=== PATIENT | female | born 1935 | race Caucasian/White ===

== ENCOUNTER 2022-05-04 14:11 | Outpatient (CLI) | payer MEDICARE, SELFPAY | END 2022-05-04 14:12 | disposition home or self-care (01) | LOC: FRMREF 14:12 | PROVIDERS: PCP Physician Assistant Medical; Visit Provider Physician Assistant Medical | DX: N39.0 Urinary tract infection, site not specified (principal); R10.9 Unspecified abdominal pain | CPT/HCPCS: 87086 ==

== ENCOUNTER 2022-06-04 19:51 | Emergency (ER) | payer MEDICARE, SELFPAY ==
[2022-06-04 20:08] LABS: Appearance Urine Clear (Clear); Bilirubin Urine 1+ (Negative); Blood Urine 2+ (Negative); Color Urine Yellow (Yellow); Glucose Urine Negative (Negative); Ketones Urine 2+ (Negative); Leukocyte Esterase Urine Negative (Negative); Nitrite Urine Negative (Negative); Protein Urine Negative (Negative)
[2022-06-04 20:14] VITALS: BP 124/58; PULSE 76; RESP 14; TEMP 36.2; O2SAT 95; BMI 21.9
[2022-06-04 20:17] LABS: WBC Urine 0-2 (0-5)
[2022-06-04 20:18] LABS: Squamous Epithelial Cell Urine Many (None-Few)
[2022-06-04 20:19] LABS: Coarse Granular Casts Urine Few
--- NOTE | 2022-06-04 20:51 | CRLHL7_ITS ---
For Patients: As a result of the Century Cures Act, medical imaging exams and procedure reports are released immediately into your electronic medical record. You may view this report before your referring provider. If you have questions, please contact your health care provider. HISTORY: Left and anterior chest pain. Right upper quadrant pain. Weight loss. TECHNIQUE: Intravenous contrast enhanced CT of the chest, abdomen and pelvis. 75 mL Isovue-370 intravenous contrast administered. COMPARISON: 02/09/2022 and 12/15/2021. FINDINGS: Chest: There is no acute pulmonary embolism. No thoracic aortic aneurysm or dissection. Coronary artery disease. No pericardial effusion. There are calcified right hilar lymph nodes related prior granulomatous infection. There is mildly prominent subcarinal nilson tissue which could be reactive. Prominent right upper paratracheal lymph node on image #19 of series 5 measures approximately 1.1 cm short axis compared to approximately 0.8 cm short axis previously. There is an area of consolidation within the right lower lobe likely reflecting pneumonia. Follow-up to confirm appropriate resolution is recommended. Some additional areas of patchy infiltrate are present within the right lower lobe more inferiorly, worsened from the prior CT. Patchy infiltrates within the right middle lobe and left lower lobe are similar to the prior CT. Probable postinflammatory changes at the lung apices. No pneumothorax or pleural effusion. No acute fractures. -------- Abdomen and pelvis: There are hepatic and splenic calcified granulomata. No biliary ductal dilatation. Tiny gallstones. Gallbladder borderline mildly distended measuring 3.9 cm. Adrenal glands normal. No focal pancreatic abnormality. Symmetric nephrograms. No renal mass or hydronephrosis. No obstructive urinary calculus. Urinary bladder nondistended. Changes of prior hysterectomy. - No change in small hiatal hernia. No small bowel obstruction. There is colonic diverticulosis without acute diverticulitis. No fluid collection or free air. - No abdominal aortic aneurysm. - Degenerative changes of the spine. No acute fractures. IMPRESSION: 1. No acute pulmonary embolism. 2. Worsened infiltrates within the right lower lobe with an area of consolidation likely related to pneumonia. Followup to confirm resolution is recommended. Areas of patchy infiltrate within the right middle lobe and left lower lobe are similar to the prior CT. 3. Findings of prior granulomatous disease. 4. Gallstones within a borderline mildly distended gallbladder. Dictated by Raphael Rojas MD @ 06/04/2022 10:10:57 PM Please note that all CT scans at this facility use dose modulation, iterative reconstruction, and/or weight-based dosing when appropriate to reduce radiation dose to as low as reasonably achievable. Dictated by: Raphael Rojas MD @ 06/04/2022 22:11:03 (Electronically Signed)
[2022-06-04 21:30] LABS: Basophils Percent Auto 0.8 % (0.0-3.0); Eosinophils Percent Auto 0.7 % (0.0-7.0); Hemoglobin* 11.6 gm/dL (12.0-16.0); Immature Granulocytes Abs Auto 0.02 K/uL (0.00-0.30); Lymphocytes Percent Auto 14.9 % (20-44); Mean Corpuscular HGB Conc 33 gm/dL (32-36); Mean Corpuscular Hemoglobin 29 pg (26-34); Mean Corpuscular Volume 88 fL (80-100); Monocytes Percent Auto 55.6 % (0.0-11.0); Neutrophils Percent Auto 27.8 % (42.0-72.0); Platelet Count* 119 K/uL (140-440); RDW Coefficient of Variation % 15.4 % (11.5-15.5); Red Blood Count 3.96 m/uL (4.00-5.20); White Blood Count* 11.91 K/uL (4.50-11.00)
[2022-06-04 21:43] LABS: Chloride* 100 mmol/L (96-114); Sodium* 136 mmol/L (135-149)
[2022-06-04 21:44] LABS: Potassium* 3.7 mmol/L (3.6-5.1)
[2022-06-04 21:46] LABS: Alkaline Phosphatase* 79 U/L (40-150); Aspartate Amino Transferase* 26 U/L (12-35); Bilirubin Total* 0.6 mg/dL (0.1-1.5); Carbon Dioxide* 27 mmol/L (20-32); Creatinine* 0.9 mg/dL (0.5-1.5); Est. Creatinine Clearance* 29.54; Estimated Glomerular Filt Rate 63 ml/min; Total Protein* 7.5 g/dL (6.0-8.3)
[2022-06-04 21:47] LABS: Alanine Aminotransferase* 13 U/L (4-35); Blood Urea Nitrogen* 14 mg/dL (7-30); Calcium* 8.8 mg/dL (8.4-10.6); Glucose* 121 mg/dL (60-115)
[2022-06-04 21:48] LABS: D Dimer Quantitative* 1.22 ug/ml (0.00-0.50)
[2022-06-04 21:54] LABS: Slide Review Reflex Yes
[2022-06-04 21:55] LABS: Slide Review Acceptable Review (Acceptable)
[2022-06-04 21:58] LABS: Troponin I* < 0.01 ng/mL (0.01-0.04)
[2022-06-04 22:01] LABS: C Reactive Protein* 12.6 mg/dL (0.5-1.0)
[2022-06-04] MEDS: 0.9 % SODIUM CHLORIDE 1000 ml 1,000 ML IV (22:11)
[2022-06-04] MEDS: levoFLOXacin 500 MG TABLET PO (22:51)
[2022-06-04 23:37] LABS: SARS PCR* Negative SARS-CoV-2 (Negative)
--- NOTE | 2022-06-05 17:09 | ED.ABDPAIN ---
HPI - Abdominal Pain General Chief Complaint: Abdominal Pain Stated Complaint: Chest pain Time Seen by Provider: 06/04/22 20:26 History of Present Illness HPI narrative: 87-year-old woman presenting to the emergency department with complaint of right-sided low chest pain more intense upon waking this morning. She describes is a sharp pain and seems to feel it somewhat in her back as well. She feels that this pain had been prior present on her left side chest and now has moved more to the right. Has been seen multiple times for upper abdominal pain as well upon review record. Also has had chest wall pain. These chest pains they would actually described as being present since a diagnosis of ?double pneumonia? in October of this year. Ultimately was hospitalized here. Diagnosed with pneumonia and respiratory failure and sepsis. Also developed supraventricular tachycardia requiring rate control. said diagnosis initially made in [place] and he drove her here 16 hours straight hoping to receive better cares. They describe how her heart was stopped a couple of times. Sounds like describing electrical cardioversion --however I see evidence that amiodarone was used. History of prolonged QT on review of records. She is not coughing and not particularly short of breath. Pain today is described as slightly pleuritic. She also concerned of urinating constantly today. There is a history of urinary tract infections. Does not have dysuria. Otherwise denies a history of gallbladder problems. Spicy foods bother her. She is treated for GERD. I see cholelithiasis in record. Otherwise history of fibromyalgia Takes tramadol for pain and then wondering whether or not there is another medication that might be helpful as she does not feel like this does enough. ?may be a better pain pill would help? Has been taking this for years They are concerned about weight loss. Generalized fatigue. says that he and his daughter thinks that she need a PET scan. Quite clear they are concerned about malignancy. Past History Past Medical History Medical Problems: Esophageal reflux Fibromyalgia Herpes simplex type 1 infection Aortic valve sclerosis Vitamin D deficiency Osteopenia FRAX: 23%major fracture. 6.5% hip fracture. Starting fosamax 08/30 Hyperparathyroidism Followed by Endocrin. - Dr. Iqbal. Corrected with Vit D replacement. Hemarthrosis of knee Hypothyroidism Solitary pulmonary nodule Followed by Pulminology at [facility] [phone] Dr. Diego Hyperlipidemia Pre-syncope normal carotid US and essentially normal cardiac echo. Had CARDS consult - no further work up indicated - 01/2011 Postherpetic neuralgia Right T10 dermatome. HTN (hypertension) Sciatic leg pain Past Surgical History Surgical Problems: H/O: hysterectomy with rectocele and bladder repair S/P total knee arthroplasty H/O colonoscopy no explanation for anemia. Small hiatal hernia. Sigmoid diverticulosis. Due for repeat colonoscopy 2015. colonoscopy EGD 2 2010 History of carpal tunnel release left wrist. 11/08/2020 Family History Family History Problems: Family history of arthritis Brother. Family history of coronary artery disease Brother; son- of [place] age 59 Family history of hypertension Siblings. 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 On prophylactic antibiotics- Dr. Brooks Aortic valve sclerosis Vitamin D deficiency Prolonged QT interval resolved after decreasing Nortripyline Osteopenia FRAX: 23%major fracture. 6.5% hip fracture. Starting fosamax 08/30 Hyperparathyroidism Followed by Endocrin. - Dr. Iqbal. Corrected with Vit D replacement. Hemarthrosis of knee Non-cardiac chest pain Hospitalized at [place]. Normal serial enzymes, normal echo, normal NM stress test. 07/2012 Lower gastrointestinal hemorrhage Hypothyroidism Solitary pulmonary nodule Followed by Pulminology at [facility] [phone] Dr. Diego Hyperlipidemia Pre-syncope normal carotid US and essentially normal cardiac echo. Had CARDS consult - no further work up indicated - 01/2011 Monocytosis See Hemoatology consult done with Dr. Herrera 08/22/16 at [facility] Postherpetic neuralgia Right T10 dermatome. HTN (hypertension) Sciatic leg pain Acute respiratory failure with hypoxia Atrial fibrillation with rapid ventricular response CAP (community acquired pneumonia) CAP (community acquired pneumonia) Chronic pain Chronic UTI HTN (hypertension) Hypokalemia Hyponatremia Hypothyroid Influenza-like illness Lactate blood increased Melena Pneumonia Severe sepsis Severe sepsis SVT (supraventricular tachycardia) UTI (urinary tract infection). Related Data Home Medications Medication Instructions Recorded Confirmed amlodipine 10 mg tablet 10 mg PO .Bedtime 05/04/22 05/04/22 cholecalciferol (vitamin D3) 25 25 mcg PO QDAY 05/04/22 05/04/22 mcg (1,000 unit) capsule levothyroxine 50 mcg tablet 50 mcg PO DAILY 05/04/22 05/04/22 polyethylene glycol 3350 17 17 g PO .Bedtime as needed PRN 05/04/22 05/04/22 gram/dose oral powder trazodone 50 mg tablet 50 mg PO .Bedtime 05/04/22 05/04/22 Previous Rx's Medication Instructions Recorded tramadol 50 mg tablet 50 mg PO Q6-8H PRN pain #270 tabs 05/04/22 simvastatin 10 mg tablet 10 mg PO .hs #90 tabs 05/29/22 Allergies Allergy/AdvReac Type Severity Reaction Status Date / Time codeine Allergy Severe Rash Verified 06/05/22 01:14 sulfamethoxazole Allergy Severe Rash Verified 06/05/22 01:14 trimethoprim Allergy Severe Rash Verified 06/05/22 01:14 Sulfa drugs Allergy Severe Rash Uncoded 06/05/22 01:14 DEMORAL Allergy Mild rash, Uncoded 06/05/22 01:14 itching, redness PFSH PFSH Medical History (Updated 06/05/22 @ 17:52 by Conrado Clarke MD) Hemarthrosis of knee Lower gastrointestinal hemorrhage Pneumonia Severe sepsis Solitary pulmonary nodule Supraventricular tachycardia Surgical History (Updated 05/01/22 @ 12:15 by Navarro Lozoya) History of carpal tunnel release History of colonoscopy (12/14/10) History of hysterectomy (11/03/10) Status post total knee replacement Family History (Updated 05/01/22 @ 12:16 by Navarro Lozoya) Brother Arthritis Coronary artery disease Sister Breast cancer Son Coronary artery disease Family/Other High blood pressure Social History (Updated 05/01/22 @ 12:17 by Navarro Lozoya) Narrative: does not drink alcohol does not use illicit drugs nonsmoker Smoking Status: Never smoker Exam Narrative: Exam Narrative: Pleasant. NAD. Breathing easily. Cranial nerves 2-12 intact. Speaking easily. Carefully groomed with makeup. Skin is warm and dry. Cardiovascular with regular rate and rhythm. 2/6 systolic murmur Extremities are without edema. Well perfused peripherally. Lungs appear to be clear. Equal expansion/excursion. Mildly reproducible pain to palpation on the low anterior chest wall right greater than left. No lesions are noted. Abdomen is soft. Not markedly tender. Tympanitic across the upper abdomen. Normoactive bowel sounds. Const: Vital Signs, click to edit/add: Vital Signs - 24 hr 06/04/22 20:14 Temperature 97.2 F L Pulse Rate [Pulse Oximeter] 76 Respiratory Rate 14 Blood Pressure [Le ft Upper Arm] 124/58 L Pulse Oximetry 95 Oxygen Delivery Me thod Room Air Documenting provider has reviewed patient's vital signs: yes Course Course Hospital Course: Monitored on secured entrance monitor. Given IV hydration. Did not appear to need further pain management. Vitally well and stable Vital Signs Vital signs: Initial Vital Signs Temperature 97.2 F L 06/04/22 20:14 Temperature Source Temporal Artery Scan 06/04/22 20:14 Pulse Rate 76 06/04/22 20:14 Pulse Rhythm 06/04/22 20:14 Respiratory Rate 14 06/04/22 20:14 Blood Pressure 124/58 L 06/04/22 20:14 Blood Pressure Mean 80 06/04/22 20:14 Pulse Oximetry 95 06/04/22 20:14 Oxygen Delivery Method 06/04/22 20:14 Vital Signs Temperature 97.2 F L 06/04/22 20:14 Pulse Rate 76 06/04/22 20:14 Respiratory Rate 14 06/04/22 20:14 Blood Pressure 124/58 L 06/04/22 20:14 Pulse Oximetry 95 06/04/22 20:14 Oxygen Delivery Method 06/04/22 20:14 Temperature 97.2 F L 06/04/22 20:14 Pulse Rate 76 06/04/22 20:14 Respiratory Rate 14 06/04/22 20:14 Blood Pressure 124/58 L 06/04/22 20:14 Pulse Oximetry 95 06/04/22 20:14 Oxygen Delivery Method 06/04/22 20:14 Chest abdomen pelvis with IV contrast IMPRESSION: 1. No acute pulmonary embolism. 2. Worsened infiltrates within the right lower lobe with an area of consolidation likely related to pneumonia. Followup to confirm resolution is recommended. Areas of patchy infiltrate within the right middle lobe and left lower lobe are similar to the prior CT. 3. Findings of prior granulomatous disease. 4. Gallstones within a borderline mildly distended gallbladder. Dictated by Raphael Rojas MD @ 06/04/2022 10:10:57 PM MDM - Abdominal Pain MDM Narrative Medical decision making narrative: Most remarkable finding in urine I think is ketones. White count mildly elevated. CRP rather elevated. Elevated D-dimer mildly. Likely reactive. Reviewed CT imaging. I believe them to be reassured of run away malignancy. Looks to be progressing pneumonia again. Did give 1 dose of levofloxacin however with prolonged QT would not continue that course. Changed to doxycycline. The pains that she is describing I think could be multifactorial combination fibromyalgia, GERD, pneumonia, post herpetic neuralgia, biliary colic. Probably fibromyalgia and post herpetic neuralgia most contributory now exacerbated by pneumonia Weight loss and fatigue on the heels of rather severe medical illnesses. I think slow recovery. Deconditioning. I'm am disinclined to increasing or adding medication right now with regard to pain but I think a followup visit to discuss pain management is in order. Would reassess pain needs following treatment and resolution of today's findings. Needs follow-up imaging to confirm resolution of paratracheal lymphadenopathy and pneumonia. Medical Records Attestation: I reviewed the patient's medical records. Lab Data Attestation: I reviewed the patient's lab results. Labs: Lab Results 06/04/22 06/04/22 06/04/22 Range/Units 20:00 21:22 21:22 WBC 11.91 H (4.50-11.00) K/uL RBC 3.96 L (4.00-5.20) m/uL Hgb 11.6 L (12.0-16.0) gm/dL Hct 35.0 (33.0-51.0) % MCV 88 (80-100) fL MCH 29 (26-34) pg MCHC 33 (32-36) gm/dL RDW Coeff of Colt 15.4 (11.5-15.5) % Plt Count 119 L (140-440) K/uL Neut % (Auto) 27.8 L (42.0-72.0) % Lymph % (Auto) 14.9 L (20-44) % [place] % (Auto) 55.6 H (0.0-11.0) % Eos % (Auto) 0.7 (0.0-7.0) % Baso % (Auto) 0.8 (0.0-3.0) % Neut # (Auto) 3.30 (1.7-7.0) K/uL Lymph # (Auto) 1.80 (0.90-2.90) K/uL [place] # (Auto) 6.60 H (0.00-0.90) K/UL Eos # (Auto) 0.10 (0.00-0.50) K/uL Baso # (Auto) 0.10 (0.00-0.30) K/uL Abs Immat Gran (auto) 0.02 (0.00-0.30) K/uL Diff Slide Review Acceptable Review (Acceptable) D-Dimer Quant (PE/DVT) 1.22 H (0.00-0.50) ug/ml Sodium (135-149) mmol/L Potassium (3.6-5.1) mmol/L Chloride (96-114) mmol/L Carbon Dioxide (20-32) mmol/L BUN (7-30) mg/dL Creatinine (0.5-1.5) mg/dL Estimated Creat Clear Estimated GFR ml/min Glucose (60-115) mg/dL Calcium (8.4-10.6) mg/dL Total Bilirubin (0.1-1.5) mg/dL AST (12-35) U/L ALT (4-35) U/L Alkaline Phosphatase (40-150) U/L Troponin I (0.01-0.04) ng/mL C-Reactive Protein (0.5-1.0) mg/dL Total Protein (6.0-8.3) g/dL Albumin (3.3-5.0) g/dL Urine Color Yellow (Yellow) Urine Appearance Clear (Clear) Urine pH 5.0 (5.0-8.5) Ur Specific [place] 1.020 (1.000-1.030) Urine Protein Negative (Negative) Urine Glucose (UA) Negative (Negative) Urine Ketones 2+ A (Negative) Urine Blood 2+ A (Negative) Urine Nitrite Negative (Negative) Urine Bilirubin 1+ A (Negative) Urine Urobilinogen 1.0 (0.2-1.0) Ur Leukocyte Esterase Negative (Negative) Urine RBC 2-5 A (0-2) Urine WBC 0-2 (0-5) Ur Squamous Epith Cells Many A (None-Few) Urine Bacteria None (None) Coarse Granular Casts Few A (None) SARS-CoV-2 (PCR) (Negative) 06/04/22 06/04/22 Range/Units 21:22 22:40 WBC (4.50-11.00) K/uL RBC (4.00-5.20) m/uL Hgb (12.0-16.0) gm/dL Hct (33.0-51.0) % MCV (80-100) fL MCH (26-34) pg MCHC (32-36) gm/dL RDW Coeff of Colt (11.5-15.5) % Plt Count (140-440) K/uL Neut % (Auto) (42.0-72.0) % Lymph % (Auto) (20-44) % [place] % (Auto) (0.0-11.0) % Eos % (Auto) (0.0-7.0) % Baso % (Auto) (0.0-3.0) % Neut # (Auto) (1.7-7.0) K/uL Lymph # (Auto) (0.90-2.90) K/uL [place] # (Auto) (0.00-0.90) K/UL Eos # (Auto) (0.00-0.50) K/uL Baso # (Auto) (0.00-0.30) K/uL Abs Immat Gran (auto) (0.00-0.30) K/uL Diff Slide Review (Acceptable) D-Dimer Quant (PE/DVT) (0.00-0.50) ug/ml Sodium 136 (135-149) mmol/L Potassium 3.7 (3.6-5.1) mmol/L Chloride 100 (96-114) mmol/L Carbon Dioxide 27 (20-32) mmol/L BUN 14 (7-30) mg/dL Creatinine 0.9 (0.5-1.5) mg/dL Estimated Creat Clear 29.54 Estimated GFR 63 ml/min Glucose 121 H (60-115) mg/dL Calcium 8.8 (8.4-10.6) mg/dL Total Bilirubin 0.6 (0.1-1.5) mg/dL AST 26 (12-35) U/L ALT 13 (4-35) U/L Alkaline Phosphatase 79 (40-150) U/L Troponin I < 0.01 L (0.01-0.04) ng/mL C-Reactive Protein 12.6 H (0.5-1.0) mg/dL Total Protein 7.5 (6.0-8.3) g/dL Albumin 4.0 (3.3-5.0) g/dL Urine Color (Yellow) Urine Appearance (Clear) Urine pH (5.0-8.5) Ur Specific [place] (1.000-1.030) Urine Protein (Negative) Urine Glucose (UA) (Negative) Urine Ketones (Negative) Urine Blood (Negative) Urine Nitrite (Negative) Urine Bilirubin (Negative) Urine Urobilinogen (0.2-1.0) Ur Leukocyte Esterase (Negative) Urine RBC (0-2) Urine WBC (0-5) Ur Squamous Epith Cells (None-Few) Urine Bacteria (None) Coarse Granular Casts (None) SARS-CoV-2 (PCR) Negative SARS-CoV-2 (Negative) ECG Data Attestation: I personally reviewed and interpreted this ECG as follows: (EKG with normal sinus at 82. Actually looks similar to prior. Might be evolving a bundle branch block) Discharge Plan Discharge Clinical Impression: Pneumonia, Cholelithiasis, Chest wall pain Patient Disposition: Home w/ Parent or Adult Condition: Stable Additional Instructions: Please follow-up to reimage your chest again in 2-3 weeks. Hydrate. I would also follow up with her primary care provider to discuss treatment of fibromyalgia and nerve-type pain. It is possible that some of your abdominal pains are related to these gallstones. Might be worth a conversation with General surgery. Return for marked increase in chest pain, increasing and persistent shortness of breath, associated fever. Protect yourself from the sun while you are taking doxycycline. We will call you if your COVID test is positive. Prescriptions: No Action cholecalciferol (vitamin D3) 25 mcg (1,000 unit) capsule 25 mcg PO QDAY levothyroxine 50 mcg tablet 50 mcg PO DAILY amlodipine 10 mg tablet 10 mg PO .Bedtime Rx Instructions: 1 po qhs for blood pressure trazodone 50 mg tablet 50 mg PO .Bedtime polyethylene glycol 3350 17 gram/dose powder 17 g PO .Bedtime as needed PRN tramadol 50 mg tablet 50 mg PO Q6-8H PRN (Reason: pain) Qty: 270 1RF simvastatin 10 mg tablet 10 mg PO .hs Qty: 90 1RF Follow Up/Referrals: Callahan,Mukti B, PA-C [Primary Care Provider] - Stand Alone Forms: [facility] Info Instructions
== END 2022-06-04 23:14 | disposition home or self-care (01) ==
PROVIDERS: Emergency Provider Family Medicine; PCP Physician Assistant Medical
DX: J18.9 Pneumonia, unspecified organism (principal); K80.20 Calculus of gallbladder without cholecystitis without obstruction; R07.89 Other chest pain
CPT/HCPCS: 36415; 71260; 74177; 80053; 81001; 84484; 85025; 85379; 86140; 87635; 93005; 96360; 99284; A9270; J7030; Q9967

== ENCOUNTER 2022-07-03 14:38 | Outpatient (CLI) | payer MEDICARE, SELFPAY ==
[2022-07-03 22:21] LABS: Chloride* 102 mmol/L (96-114)
[2022-07-03 22:22] LABS: Potassium* 4.5 mmol/L (3.6-5.1); Sodium* 139 mmol/L (135-149)
[2022-07-03 22:25] LABS: Blood Urea Nitrogen* 11 mg/dL (7-30); Calcium* 9.4 mg/dL (8.4-10.6); Carbon Dioxide* 28 mmol/L (20-32); Creatinine* 0.8 mg/dL (0.5-1.5); Estimated Glomerular Filt Rate 72 ml/min; Glucose* 85 mg/dL (60-115)
== END 2022-07-03 14:39 | disposition home or self-care (01) ==
PROVIDERS: PCP Physician Assistant Medical; Visit Provider Family Medicine
DX: R05.9 Cough, unspecified (principal); J06.9 Acute upper respiratory infection, unspecified
CPT/HCPCS: 80048

== ENCOUNTER 2022-09-05 10:02 | Outpatient (CLI) | payer MEDICARE, SELFPAY | END 2022-09-05 10:03 | disposition home or self-care (01) | LOC: FRMREF 09-11 14:05 | PROVIDERS: PCP Physician Assistant Medical; Visit Provider Family Medicine | DX: R30.0 Dysuria (principal); R35.0 Frequency of micturition | CPT/HCPCS: 87086 ==

== ENCOUNTER 2022-10-31 11:32 | Outpatient (CLI) | payer MEDICARE, SELFPAY | END 2022-10-31 11:33 | disposition home or self-care (01) | LOC: FRMREF 11-02 15:28 | PROVIDERS: PCP Physician Assistant Medical; Visit Provider Physician Assistant Medical | DX: R30.0 Dysuria (principal); N39.0 Urinary tract infection, site not specified | CPT/HCPCS: 87086; 87186 ==

== ENCOUNTER 2022-12-13 07:18 | Outpatient (CLI) | payer MEDICARE, SELFPAY | END 2022-12-13 07:19 | disposition home or self-care (01) | LOC: NFLDREF 12-21 11:32 | PROVIDERS: PCP Physician Assistant Medical; Referring Provider Physician Assistant Medical; Visit Provider Physician Assistant Medical | DX: R30.0 Dysuria (principal); N39.0 Urinary tract infection, site not specified | CPT/HCPCS: 87086; 87186 ==

== ENCOUNTER 2023-01-01 10:59 | Emergency (ER) | payer MEDICARE, SELFPAY ==
[2023-01-01 11:19] VITALS: BP 125/57; PULSE 72; RESP 16; TEMP 37.2; O2SAT 98; BMI 21.7
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
--- NOTE | 2023-01-01 11:40 | CRLHL7_ITS ---
For Patients: As a result of the Century Cures Act, medical imaging exams and procedure reports are released immediately into your electronic medical record. You may view this report before your referring provider. If you have questions, please contact your health care provider. Indication: Trauma. Technique: Right foot, 2 views. Comparison: None. Findings/Impression: Bones: Decreased osseous mineralization. Alignment is normal. No displaced fractures or bone lesions. No sign of acute injury. Joint spaces: Unremarkable. Soft tissues: Unremarkable. Dictated by Adonis Orantes MD @ 01/01/2023 1:27:34 PM (Electronically Signed)
--- NOTE | 2023-01-01 11:40 | CRLHL7_ITS ---
For Patients: As a result of the Cures Act, medical imaging exams and procedure reports are released immediately into your electronic medical record. You may view this report before your referring provider. If you have questions, please contact your health care provider. INDICATION: Fall. TECHNIQUE: Right femur 5 views. COMPARISON: Right knee radiographs 04/22/2014. Right hip radiographs 02/10/2014. FINDINGS: No acute fracture or dislocation. Right total knee arthroplasty with patellar surfacing. Hardware appears intact without radiographic evidence of loosening. No knee joint effusion. Soft tissues are unremarkable. IMPRESSION: 1. No acute findings. 2. Intact right TKA without evidence of hardware failure. Dictated by Mis Green MD @ 01/01/2023 1:28:56 PM (Electronically Signed)
--- NOTE | 2023-01-01 11:41 | CRLHL7_ITS ---
For Patients: As a result of the 21st Century Cures Act, medical imaging exams and procedure reports are released immediately into your electronic medical record. You may view this report before your referring provider. If you have questions, please contact your health care provider. Indication: Fall down escalated Technique: Volumetric multidetector CT images of the chest, abdomen, and pelvis were obtained after the administration of intravenous contrast. 54 cc Isovue 370 low osmolar intravenous contrast Comparison: None available. FINDINGS: CHEST The thoracic inlet is unremarkable. The thyroid gland is within normal limits. The thoracic aorta is non aneurysmal with scattered atherosclerotic calcification. There are mildly prominent mediastinal and hilar lymph nodes likely reactive in nature. There is mild central bronchial thickening. There are calcified hilar lymph nodes. There are scattered airspace opacities within the peripheral right greater than left lower lobes and middle lobe with somewhat cavitary appearing nodular opacity within the peripheral right lower lobe on series 2, image 63 measuring 1.2 centimeters in greatest dimension. The thoracic osseus structures are intact without fracture, lytic, or blastic lesion. The thoracic vertebral body heights are grossly maintained with mild straightening of the normal thoracic kyphosis. There is no significant spondylolisthesis. ABDOMEN AND PELVIS The liver is mildly prominent with calcified granulomas seen throughout. There are calcified splenic granulomas. There are dependent calculi within the gallbladder lumen. There is no intrahepatic or common ductal dilatation. There is a small hiatal hernia. Mild thickening of the gastric antrum is appreciated. The pancreas is normal in enhancement without significant atrophy. The adrenal glands are unremarkable without evidence of adenoma. The kidneys are preserved and corticomedullary differentiation. There is no hydronephrosis or radiopaque calculus. There is a moderate to severe diffuse amount of intracolonic stool. There is minimal distal colonic diverticulosis. The appendix is not well visualized. The abdominal aorta is nonaneurysmal with moderate scattered atherosclerotic calcification. There is prior hysterectomy. The remaining pelvic viscera are grossly within normal limits. There is no pathologically enlarged epigastric, mesenteric, retroperitoneal, or pelvic sidewall lymph node. The anterior abdominal wall is grossly intact without significant hernias. There is no free air or free fluid. There is moderate degenerative change of the bilateral hips and sacroiliac joints. The lumbar vertebral body heights are grossly maintained with endplate Schmorl`s defects. There is moderate facet arthrosis. Impression: 1. No definite evidence of acute traumatic changes of the chest, abdomen or pelvis. 2. Scattered nodular airspace opacities within the middle lobe and right greater than left lower lobes with demonstration of somewhat cavitary infiltrate and/or cavitary mass within the peripheral right lower lobe on series 2, image 63 for which additional follow-up with repeat CT of the chest in 1-3 months is recommended. 3. Sequela of granulomatous disease changes. Cholelithiasis without acute cholecystitis. Moderate stool. Mild chronic gastritis change. Please note that all CT scans at this facility use dose modulation, iterative reconstruction, and/or weight-based dosing when appropriate to reduce radiation dose to as low as reasonably achievable. Dictated by Barrera Castrejon MD @ 01/01/2023 2:48:01 PM (Electronically Signed)
[2023-01-01 12:18] VITALS: BP 135/63; PULSE 68; RESP 18; O2SAT 98
[2023-01-01 12:19] LABS: Basophils Absolute Auto 0.07 K/uL (0.00-0.30); Basophils Percent Auto 1.5 % (0.0-3.0); Eosinophils Absolute Auto 0.09 K/uL (0.00-0.50); Eosinophils Percent Auto 1.9 % (0.0-7.0); Hematocrit 39.9 % (33.0-51.0); Hemoglobin* 12.9 gm/dL (12.0-16.0); Immature Granulocytes Abs Auto 0.02 K/uL (0.00-0.30); Immature Granulocytes Pct Auto 0.4 %; Lymphocytes Absolute Auto 1.76 K/uL (0.90-2.90); Lymphocytes Percent Auto 37.1 % (20-44); Mean Corpuscular HGB Conc 32 gm/dL (32-36); Mean Corpuscular Hemoglobin 28 pg (26-34); Mean Corpuscular Volume 87 fL (80-100); Monocytes Percent Auto 36.5 % (0.0-11.0); Neutrophils Percent Auto 22.6 % (42.0-72.0); Platelet Count* 135 K/uL (140-440); RDW Coefficient of Variation % 16.4 % (11.5-15.5); Red Blood Count 4.61 m/uL (4.00-5.20); White Blood Count* 4.74 K/uL (4.50-11.00)
[2023-01-01 12:30] LABS: Slide Review Reflex No
[2023-01-01 13:01] VITALS: BP 131/67; PULSE 79; RESP 16; O2SAT 100
[2023-01-01 13:01] LABS: Creatinine, Point-of-Care* 0.8 mg/dl (0.6-1.3)
[2023-01-01 13:22] LABS: Appearance Urine Clear (Clear); Bilirubin Urine Negative (Negative); Blood Urine Trace-intact (Negative); Color Urine Yellow (Yellow); Glucose Urine Negative (Negative); Ketones Urine Negative (Negative); Leukocyte Esterase Urine Negative (Negative); Nitrite Urine Negative (Negative); Protein Urine Negative (Negative); Specific Gravity Urine 1.015 (1.000-1.030); Urobilinogen Urine 0.2 (0.2-1.0)
[2023-01-01 14:02] LABS: Chloride* 105 mmol/L (96-114); Sodium* 140 mmol/L (135-149)
[2023-01-01 14:04] LABS: Creatinine* 0.8 mg/dL (0.5-1.5); Est. Creatinine Clearance* 29.54; Estimated Glomerular Filt Rate 72 ml/min
[2023-01-01 14:05] LABS: Blood Urea Nitrogen* 9 mg/dL (7-30); Calcium* 9.6 mg/dL (8.4-10.6); Carbon Dioxide* 28 mmol/L (20-32); Glucose* 110 mg/dL (60-115)
[2023-01-01 14:18] LABS: RBC Urine 0-2 (0-2); Squamous Epithelial Cell Urine Few (None-Few); WBC Urine 0-2 (0-5)
== END 2023-01-01 15:25 | disposition home or self-care (01) ==
PROVIDERS: Emergency Provider Family Medicine; PCP Physician Assistant Medical
DX: S97.81XA Crushing injury of right foot, initial encounter (principal); R07.81 Pleurodynia; M25.551 Pain in right hip; V03.10XA Pedestrian on foot injured in collision with car, pick-up truck or van in traffic accident, initial encounter
CPT/HCPCS: 36415; 71260; 73552; 73620; 74177; 80048; 81003; 81015; 82565; 85025; 99284; Q9967

== ENCOUNTER 2023-01-10 08:57 | Outpatient (CLI) | payer MEDICARE, SELFPAY ==
[2023-01-10 12:04] LABS: Albumin* 4.1 g/dL (3.3-5.0); Chloride* 107 mmol/L (96-114)
[2023-01-10 12:05] LABS: Potassium* 4.8 mmol/L (3.6-5.1); Sodium* 142 mmol/L (135-149)
[2023-01-10 12:07] LABS: Alkaline Phosphatase* 72 U/L (40-150); Aspartate Amino Transferase* 19 U/L (12-35); Bilirubin Total* 0.4 mg/dL (0.1-1.5); Blood Urea Nitrogen* 10 mg/dL (7-30); Carbon Dioxide* 29 mmol/L (20-32); Cholesterol* 142 mg/dL (90-199); Creatinine* 0.8 mg/dL (0.5-1.5); Estimated Glomerular Filt Rate 72 ml/min; Total Protein* 7.3 g/dL (6.0-8.3)
[2023-01-10 12:08] LABS: Alanine Aminotransferase* 10 U/L (4-35); Calcium* 9.2 mg/dL (8.4-10.6); Glucose* 103 mg/dL (60-115); HDL Cholesterol* 52 mg/dL (>=50); LDL Cholesterol Calculated 72 mg/dL (<100); Triglycerides* 90 mg/dL (40-149)
== END 2023-01-10 08:58 | disposition home or self-care (01) ==
PROVIDERS: PCP Physician Assistant Medical; Visit Provider Physician Assistant Medical
DX: E78.5 Hyperlipidemia, unspecified (principal); I10 Essential (primary) hypertension; R30.0 Dysuria; R91.1 Solitary pulmonary nodule; R07.81 Pleurodynia
CPT/HCPCS: 80053; 80061; 84443; 87086

== ENCOUNTER 2023-01-15 20:33 | Outpatient (CLI) | payer MEDICARE, SELFPAY | END 2023-01-15 20:34 | disposition home or self-care (01) | LOC: AMB 01-21 03:47 | PROVIDERS: PCP Physician Assistant Medical; Visit Provider Emergency Medicine | DX: R07.89 Other chest pain (principal) | CPT/HCPCS: A0425; A0433 ==

== ENCOUNTER 2023-02-02 12:18 | Outpatient (CLI) | payer MEDICARE, SELFPAY | END 2023-02-02 12:19 | disposition home or self-care (01) | LOC: NFLDREF 02-04 10:18 | PROVIDERS: PCP Physician Assistant Medical; Referring Provider Physician Assistant Medical; Visit Provider Physician Assistant Medical | DX: R82.90 Unspecified abnormal findings in urine (principal) | CPT/HCPCS: 87086; 87186 ==

== ENCOUNTER 2023-06-12 09:59 | Outpatient (CLI) | payer MEDICARE, SELFPAY ==
--- OUTSIDE RECORDS SUMMARY | 2023-06-14 13:09 | XMS_ITS | Continuity of Care Document ---
Author Name Unknown Organization [facility] Address [address] [place] [address] Phone Care Team Providers Care Bookkeeping Teacher Name Role Phone Steve Dickerson DO Unavailable Unavailable Advance Directives Directive Yes / No Effective Date File Name No Information Encounters Encounter Description Practice Location Reason(s) For Visit Diagnoses Date Provider Providers Copied on Encounter [facility], [address], [place], [address], [place] tel:[phone] [facility], No Information 2 Tuan Wilson. [facility] [address], [place], [address], [place]. tel:[phone] Family History Family Member Type Diagnosis Age At Onset No Information Payers Payer name Insurance type Covered constitution party ID Authoriza tion(s) No Information Social History Type Description Quantity Date Captured Comments Sex Female Smoking Status No Information Chief Complaint And Reason For Visit No Information Reason For Referral Reason For Referral No Information History Of Present Illness Encounter Date Complaint History Of Prese nt Illness No Information Functional Status Date Functional Assessmen t No Information Instructions Date Instruction Additional Infor mation No Information Assessments Type Assessment Date No Information Patient Care Teams Name Effective Dates (start - stop) Status Members No Information
== END 2023-06-12 10:00 | disposition home or self-care (01) ==
LOC: NFLDREF 06-14 13:07
PROVIDERS: PCP Physician Assistant Medical; Referring Provider Physician Assistant Medical; Visit Provider Family Medicine
DX: N34.3 Urethral syndrome, unspecified (principal); N39.0 Urinary tract infection, site not specified; R05.9 Cough, unspecified
CPT/HCPCS: 87086; 87186

== ENCOUNTER 2023-06-26 11:23 | Outpatient (CLI) | payer MEDICARE, SELFPAY | END 2023-06-26 11:24 | disposition home or self-care (01) | LOC: NFLDREF 06-27 11:54 | PROVIDERS: PCP Physician Assistant Medical; Referring Provider Physician Assistant Medical; Visit Provider Physician Assistant Medical | DX: N39.0 Urinary tract infection, site not specified (principal) | CPT/HCPCS: 87086; 87186 ==

== ENCOUNTER 2023-07-05 14:48 | Outpatient (CLI) | payer MEDICARE, SELFPAY ==
--- OUTSIDE RECORDS SUMMARY | 2023-07-09 13:22 | XMS_ITS | Continuity of Care Document ---
Author Name Unknown Organization [facility] Address [address] [place] [address] Phone Care Team Providers Care Container Filler Name Role Phone Steve Dickerson DO Unavailable Unavailable Advance Directives Directive Yes / No Effective Date File Name No Information Encounters Encounter Description Practice Location Reason(s) For Visit Diagnoses Date Provider Providers Copied on Encounter [facility], [address], [place], [address], [place] tel:[phone] [facility], No Information 2 Tuan Wilson. [facility] [address], [place], [address], [place]. tel:[phone] Family History Family Member Type Diagnosis Age At Onset No Information Payers Payer name Insurance type Covered green party ID Authoriza tion(s) No Information Social [...]
== END 2023-07-05 14:49 | disposition home or self-care (01) ==
LOC: NFLDREF 07-09 13:20
PROVIDERS: PCP Physician Assistant Medical; Referring Provider Physician Assistant Medical; Visit Provider Physician Assistant Medical
DX: N39.0 Urinary tract infection, site not specified (principal)
CPT/HCPCS: 87086; 87186

== ENCOUNTER 2023-07-09 13:00 | Outpatient (RCR) | payer MEDICARE, SELFPAY ==
--- NOTE | 2023-07-09 16:42 | PT.OPE ---
PT [facility] PT [facility] Out[facility] Eval Start: 07/09/23 16:30 Freq: Status: Active Protocol: Document 07/09/23 16:31 LEYDA (Rec: 07/09/23 16:39 LEYDA [id number]) E-signed By Jesús Hartman DPT, MS Physical Therapy Outpatient Evaluation Insurance Information Recert Due Date 10/07/23 Insurance Name Medicare B,Blue [employer]/Blue [employer] Medical Diagnosis Benign paroxysmal vertigo, unspecified ear Treating Diagnosis Dizziness, imbalance, neck pain Subjective Subjective Pt presents to PT with c/o room spinning dizziness of insidious origin on 06/29/23 when getting out of bed. Dx with BPPV at [facility]. Sxs have improved significantly with resolution of dizziness over the past 4-5 days with all body and head position changes. 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 Pt describes complex PMH over the past few years after having her R foot driven over at an airport, having covid twice, having multiple UTIs and pneumonia leading to high levels of anxiety and stress. Describes chest tightness which she believes is due to scarring from pneumonia which she will see a tape calender regarding in mid-July. Notes elevated B CS tightness since vertigo sxs began. Medication has helped with high levels of anxiety. AGGR factor: quick head movements, supine to sit transfers, uneven surfaces. ALLEV factors : slow movement, rest. She hopes to eliminate dizziness and return to performing all work and daily activities safely. Pain Comments No current dizziness; mod- severe at worst Current Work Status Manager [employer] Objective Functional Test Performed & Score 4-Item DGI: 06/26 with mod path deviation SBA with decreased velocity with horizontal and vertical head movements Assessment Assessment/Impression All BPPV testing negative with sensory disorganization found with balance testing. Overreliance on vision for balance with imbalance on compliant surfaces without vision. Her BPPV appears to have resolved with continued residual balance deficits. Negative DVA and VOR cancellation testing with no signs or symptoms of a vestibular neuritis. Orthostatic testing negative. All other neurological testing negative. She is a mild falls risk based on her score on the 4-item Dynamic Gait Index testing. Good response to balance exercises with improved balance on compliant surfaces following. She would benefit from continued skilled PT intervention to improve her balance and dizziness sxs if she has a recurrence of sxs . Primary Functional Limitations Quick head movement, supine to sit transfers, uneven surfaces Plan of Care Rehabilitation Potential Excellent Physical Therapy Goals Therapy goals to be completed in 10 weeks: 1.Patient will report resolution of dizziness sxs with all daily activities for >4 consecutive days. 2.Patient will display improved Romberg balance on foam surface with eyes closed >4 sec with minimal sway to decrease falls risk on compliant surfaces. 3.Patient will display improved 4-item DGI testing > 07/26 to decrease falls risk with dynamic gait tasks. 4. Pt will report >75% improvement in DHI to improve safety and tolerance to daily functional activities. Coordination/Communication With Referral Source Treatment Plan/Direct Interventions Canalith Repositioning,Manual Therapy,Neuromuscular Re-ed, Therapeutic Exercises Frequency/Duration 1x per week for as needed for 6-10 visits Evaluation Billing Untimed Code Treatment Minutes 28 Complexity Moderate Certification Information Initial Certification Date 07/09/23 Ending Certification Date 10/07/23 Provider Signature Shows Agreement With POC & Medical Necessity Physician Signature & Date Requested Please Sign/Date Here Physician Comment/Change : Physician NPI Number #
== END 2023-11-06 23:59 | disposition home or self-care (01) ==
PROVIDERS: PCP Physician Assistant Medical; Visit Provider Physician Assistant Medical
DX: H81.10 Benign paroxysmal vertigo, unspecified ear (principal); R26.81 Unsteadiness on feet; M54.2 Cervicalgia; Z51.89 Encounter for other specified aftercare
CPT/HCPCS: 97110; 97162

== ENCOUNTER 2023-08-06 08:32 | Observation (INO) | payer MEDICARE, SELFPAY ==
--- NOTE | 2023-08-06 08:41 | ED_ITS ---
HPI - General Adult General Time Seen by Provider: 08:38 Date Seen: 08/06/23 Chief complaint: Diarrhea Stated complaint: Vomiting, diarrhea Time Seen by Provider: 08/06/23 08:38 Source: patient, EMS and RN notes reviewed Mode of arrival: EMS Limitations: no limitations History of Present Illness HPI narrative: This 88-year-old female was brought in by [facility] ambulance from home where she was feeling to care for herself due to ongoing nausea vomiting and diarrhea. She has had 2 week history, did think that there was some blood in it but the ambulance crew saw dark vomit in the toilet come on her pillow but there was no visible blood. She reports that she was on antibiotics a few weeks ago for bladder infection. She does not recall any history C difficile prior, no travel. Ambulance crew noted that there were accidents of stool in vomit throughout the facility, she had multiple pairs of clothes soaking in the tub. She thinks she has had fevers, there is some abdominal discomfort. She has become weak and unable to care for herself at home. Related Data Home Medications Medication Instructions Recorded Confirmed cholecalciferol (vitamin D3) 25 25 mcg PO QDAY 05/04/22 06/12/23 mcg (1,000 unit) capsule polyethylene glycol 3350 17 17 g PO .Bedtime as needed PRN 05/04/22 06/12/23 gram/dose oral powder trazodone 50 mg tablet 25 mg PO .hs 09/05/22 06/12/23 Previous Rx's Medication Instructions Recorded amlodipine 10 mg tablet 10 mg PO .Bedtime #90 tabs 01/10/23 levothyroxine 50 mcg tablet See Rx Instructions .Route 01/10/23 .COMPLEX #90 tabs simvastatin 10 mg tablet 10 mg PO .hs #90 tabs 01/10/23 tramadol 50 mg tablet 50 mg PO Q6-8H PRN pain #270 tabs 05/08/23 gabapentin 100 mg capsule 100 mg PO QHS #90 caps 07/04/23 omeprazole 20 mg capsule,delayed 20 mg PO QAM #90 caps 07/04/23 release sertraline 50 mg tablet 50 mg PO QDAY #60 tabs 07/04/23 amoxicillin 875 mg tablet 875 mg PO BID #14 tabs 07/09/23 Allergies Allergy/AdvReac Type Severity Reaction Status Date / Time codeine Allergy Severe Rash Verified 06/12/23 10:18 sulfamethoxazole Allergy Severe Rash Verified 06/12/23 10:18 trimethoprim Allergy Severe Rash Verified 06/12/23 10:18 Sulfa drugs Allergy Severe Rash Uncoded 06/12/23 10:18 DEMORAL Allergy Mild rash, Uncoded 06/12/23 10:18 itching, redness Review of Systems Status of ROS: Reports: 6 or more systems reviewed and unremarkable except as noted in History and below [facility] Medical History Pneumonia ?J18.9 - Pneumonia, unspecified organism (ICD-10) Chest pain ?R07.9 - Chest pain, unspecified (ICD-10) 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 neoplasm of unspecified ovary (ICD-10) Supraventricular tachycardia ?I47.1 - Supraventricular tachycardia (ICD-10) Severe sepsis ?A41.9 - Sepsis, unspecified organism (ICD-10) ?R65.20 - Severe sepsis without septic shock (ICD-10) Pneumonia ?J18.9 - Pneumonia, unspecified organism (ICD-10) Pain in lower extremity due to sciatica ?M54.30 - Sciatica, unspecified side (ICD-10) Lower gastrointestinal hemorrhage ?K92.2 - Gastrointestinal hemorrhage, unspecified (ICD-10) Hemarthrosis of knee ?M25.069 - Hemarthrosis, unspecified knee (ICD-10) Surgical History History of bladder surgery ?Z98.890 - Other specified postprocedural states (ICD-10) Status post total knee replacement ?Z96.659 - Presence of unspecified artificial knee joint (ICD-10) History of hysterectomy (11/03/10) ?Z90.710 - Acquired absence of both cervix and uterus (ICD-10) History of colonoscopy (12/14/10) ?Z98.890 - Other specified postprocedural states (ICD-10) History of carpal tunnel release ?Z98.890 - Other specified postprocedural states (ICD-10) Family History Brother Arthritis Coronary artery disease Sister Breast cancer Son Coronary artery disease Family/Other High blood pressure Social History Narrative: does not drink alcohol does not use illicit drugs nonsmoker Patient continues to work 3 times a day at [email or web address]. What is your current living situation?: I presently have a place to live In the past 12 months, utilities in danger of being shut off: no In past 12 months, lack of transportation kept you from medical appts, meetings, work, or getting things needed for daily living: no In the past 12 mos, have been you worried that your food would run out before you had money to buy more?: never true In the past 12 mos, the food you bought just didn't last and you didn't have money to buy more?: never true Smoking Status: Never smoker Do you use any of these nicotine containing products: None Second hand tobacco smoke exposure: No How often do you have a drink containing alcohol: monthly or less How many standard drinks containing alcohol do you have on a typical day: 1 or 2 How often do you have six or more drinks on one occasion: Never AUDIT-C Alcohol total score: 1 Non-prescribed substance use: denies use How often does anyone, including family, friends and others, physically hurt you : never How often does anyone, including family, friends and others, insult or talk down to you: never How often does anyone, including family, friends and others, threaten you with harm: never How often does anyone, including family, friends and others, scream or curse at you: never Little interest or pleasure in doing things: not at all Feeling down, depressed, or hopeless: not at all service: No Exam Const: Vital Signs, click to edit/add: Vital Signs - 24 hr 08/06/23 08:42 Temperature 98.0 F Pulse Rate [Right Pulse Oximeter] 89 Respiratory Rate 18 Blood Pressure [Ri ght Upper Arm] 101/65 Pulse Oximetry 96 Oxygen Delivery Me thod Room Air Mone is alert, interactive, very pleasant. Speech is normal. She does have some makeup on, lips or normal but oropharynx with dry mucosa, no traumatic changes. Sclera clear, conjugate gaze, pupils equal and round. Lungs are clear with good air entry, no wheezing or crackles, no tachypnea. CV regular rate and rhythm, no murmur, normal S1 and S2, no S3 or S4. Abdomen is soft but does have mild diffuse tenderness. I do hear bowel sounds. There is no rebound or guarding, no organomegaly or masses noted. She has no lower extremity edema, following commands. Moves arms and legs. Close are disheveled, there is some stool on her robe. Documenting provider has reviewed patient's vital signs: yes Course Course ED Course: 88-year-old female with nausea vomiting and diarrhea, concern for possible C difficile here or other diarrheal illness. Other forms of colitis certainly possible. Given a 2 week history, I highly doubt that this is anything surgical. Dehydration with this is certainly a concern. EMS started an IV, did given initial 500 mL normal saline which we will complete. I have subsequently ordered another L of normal saline. It is likely she is going to need admission while this is sorted out. Have ordered stool studies including C diff, stool culture and ova and parasite. Do not feel she needs emergent imaging at this time but should stool studies for C difficile come back negative or if there is an extremely elevated white count, other abnormalities within the labs that make concerns for other etiologies more likely, will reconsider. Will talk to the hospitalist regarding this patient. Reevaluation(s) Time of Reevaluation #1: 08:56 Reevaluation #1: Her daughter relays a bit more history. Mone has lost weight over the last 3-4 months. She did see a extrusion press operator this last week and there was a spot in her lungs that they were concerned about, she is scheduled for an outpatient pulmonary CT this next week. Did review with them that if it did become pertinent to our visit, consideration would be made for this testing. However, if it is not pertinent to the current medical issue, it is not considered necessary for this testing to be done here. They are in agreement for hospitalization. Time of Reevaluation #2: 09:39 Reevaluation #2: potassium is low at 2.9. Will initiate some IV replacement is a doubt patient is going to tolerate orals at this point[place] [address] [place] and given picture, do have increased concerns for potential C difficile. Consultations Consultation #1: Just spoke with Lisa JARA hospitalist regarding this patient. I did add on a GI pathogen as requested. She agrees on holding on imaging at this time. She does accept this patient. Time: 09:01 Vital Signs Vital signs: Initial Vital Signs Temperature 98.0 F 08/06/23 08:42 Temperature Source Temporal Artery Scan 08/06/23 08:42 Pulse Rate 89 08/06/23 08:42 Respiratory Rate 18 08/06/23 08:42 Blood Pressure 101/65 08/06/23 08:42 Blood Pressure Mean 77 08/06/23 08:42 Pulse Oximetry 96 08/06/23 08:42 Oxygen Delivery Method Room Air 08/06/23 08:42 Vital Signs Temperature 98.0 F 08/06/23 08:42 Pulse Rate 89 08/06/23 08:42 Respiratory Rate 18 08/06/23 08:42 Blood Pressure 101/65 08/06/23 08:42 Pulse Oximetry 96 08/06/23 08:42 Oxygen Delivery Method Room Air 08/06/23 08:42 Temperature 98.0 F 08/06/23 08:42 Pulse Rate 89 08/06/23 08:42 Respiratory Rate 18 08/06/23 08:42 Blood Pressure 101/65 08/06/23 08:42 Pulse Oximetry 96 08/06/23 08:42 Oxygen Delivery Method Room Air 08/06/23 08:42 Medical Decision Making Lab Data Lab results reviewed: Yes I reviewed the patient's lab results Labs: Lab Results 08/06/23 Range/Units 08:55 WBC 32.48 H* (4.50-11.00) K/uL RBC 4.07 (4.00-5.20) m/uL Hgb 10.8 L (12.0-16.0) gm/dL Hct 34.0 (33.0-51.0) % MCV 84 (80-100) fL MCH 27 (26-34) pg MCHC 32 (32-36) gm/dL RDW Coeff of Colt 20.2 H (11.5-15.5) % Plt Count 179 (140-440) K/uL Neut % (Auto) 14.7 L (42.0-72.0) % Lymph % (Auto) 3.9 L (20-44) % [place] % (Auto) 78.5 H (0.0-11.0) % Eos % (Auto) 0.1 (0.0-7.0) % Baso % (Auto) 0.3 (0.0-3.0) % Neut # (Auto) 4.80 (1.7-7.0) K/uL Lymph # (Auto) 1.30 (0.90-2.90) K/uL [place] # (Auto) 25.50 H (0.00-0.90) K/UL Eos # (Auto) 0.00 (0.00-0.50) K/uL Baso # (Auto) 0.10 (0.00-0.30) K/uL Abs Immat Gran (auto) 0.80 H (0.00-0.30) K/uL Imm/Tot Granulo (auto) 2.5 % Diff Slide Review Acceptable Review (Acceptable) Sodium 135 (135-149) mmol/L Potassium 2.9 L* (3.6-5.1) mmol/L Chloride 104 (96-114) mmol/L Carbon Dioxide 21 (20-32) mmol/L Anion Gap 10 (7-15) mEq/L BUN 13 (7-30) mg/dL Creatinine 1.1 (0.5-1.5) mg/dL Estimated GFR 49 ml/min Glucose 151 H (60-115) mg/dL Lactate 2.0 H (0.5-1.9) mmol/L Calcium 8.3 L (8.4-10.6) mg/dL Total Bilirubin 1.5 (0.1-1.5) mg/dL AST 44 H (12-35) U/L ALT 18 (4-35) U/L Alkaline Phosphatase 83 (40-150) U/L C-Reactive Protein 19.3 H (0.5-1.0) mg/dL Total Protein 6.9 (6.0-8.3) g/dL Albumin 3.5 (3.3-5.0) g/dL ECG Data Attestation: I personally reviewed and interpreted this ECG as follows: ( sinus rhythm, 80 beats per minute. PVC seen. Nonspecific STT wave changes. QT corrected 450 milliseconds.) Discharge Plan Discharge Clinical Impression: Nausea, vomiting and diarrhea, Acute hypokalemia Patient Disposition: Admitted As Observation
[2023-08-06 08:42] VITALS: BP 101/65; PULSE 89; RESP 18; TEMP 36.7; O2SAT 96
[2023-08-06 09:05] LABS: Basophils Percent Auto 0.3 % (0.0-3.0); Eosinophils Percent Auto 0.1 % (0.0-7.0); Hemoglobin* 10.8 gm/dL (12.0-16.0); Immature Granulocytes Pct Auto 2.5 %; Lymphocytes Percent Auto 3.9 % (20-44); Mean Corpuscular HGB Conc 32 gm/dL (32-36); Mean Corpuscular Hemoglobin 27 pg (26-34); Mean Corpuscular Volume 84 fL (80-100); Monocytes Percent Auto 78.5 % (0.0-11.0); Neutrophils Percent Auto 14.7 % (42.0-72.0); Platelet Count* 179 K/uL (140-440); RDW Coefficient of Variation % 20.2 % (11.5-15.5); Red Blood Count 4.07 m/uL (4.00-5.20)
[2023-08-06] MEDS: 0.9 % SODIUM CHLORIDE 1000 ml 1,000 ML 500 ML IV (09:15)
[2023-08-06 09:22] LABS: Slide Review Reflex Yes; White Blood Count* 32.48 K/uL (4.50-11.00)
[2023-08-06 09:23] LABS: Albumin* 3.5 g/dL (3.3-5.0); Chloride* 104 mmol/L (96-114); Sodium* 135 mmol/L (135-149)
[2023-08-06 09:26] LABS: Alanine Aminotransferase* 18 U/L (4-35); Alkaline Phosphatase* 83 U/L (40-150); Anion Gap 10 mEq/L (7-15); Aspartate Amino Transferase* 44 U/L (12-35); Bilirubin Total* 1.5 mg/dL (0.1-1.5); Blood Urea Nitrogen* 13 mg/dL (7-30); Carbon Dioxide* 21 mmol/L (20-32); Creatinine* 1.1 mg/dL (0.5-1.5); Estimated Glomerular Filt Rate 49 ml/min; Glucose* 151 mg/dL (60-115); Total Protein* 6.9 g/dL (6.0-8.3)
[2023-08-06 09:27] LABS: Calcium* 8.3 mg/dL (8.4-10.6)
[2023-08-06 09:28] LABS: Potassium* 2.9 mmol/L (3.6-5.1)
[2023-08-06 09:34] LABS: Slide Review Acceptable Review (Acceptable)
[2023-08-06 09:44] LABS: C Reactive Protein* 19.3 mg/dL (0.5-1.0)
[2023-08-06] MEDS: POTASSIUM CHLORIDE 10 MEQ/100 ML PIGGYBACK 100 MEQ IVPB (09:49)
--- NOTE | 2023-08-06 09:55 | CRLHL7_ITS ---
For Patients: As a result of the Century Cures Act, medical imaging exams and procedure reports are released immediately into your electronic medical record. You may view this report before your referring provider. If you have questions, please contact your health care provider. INDICATION: Vomiting and diarrhea TECHNIQUE: Axial images were obtained from the diaphragm to the pubic symphysis. Reformats were obtained in the coronal and sagittal plane. IV Contrast: 57 cc Isovue 370 Oral Contrast: None COMPARISON: Abdomen and pelvis CT 01/01/2023 FINDINGS: Lower chest: Linear subpleural densities within the lungs, favor areas of parenchymal scarring. Mild coronary atherosclerosis. Small hiatal hernia. Liver: Calcification within the liver with diffusely decreased density. Gallbladder and bile ducts: Cholelithiasis without pericholecystic inflammation. Spleen: Calcifications within the spleen. Pancreas: Moderate pancreatic atrophy. Adrenal glands: Unremarkable. No nodules. Kidneys: Unremarkable. No masses, stones, or hydronephrosis. Vasculature: Atherosclerosis without abdominal aortic aneurysm. GI tract: Small hiatal hernia. The stomach is decompressed. Evaluation of the bowel is somewhat limited due to patient motion on the exam. Mesenteric lymph nodes noted measuring less than 1 centimeter. Some wall thickening of distal small bowel loops questioned (series 2, image 127). Colon is decompressed. Moderate colonic diverticulosis noted. Pelvis: Status post hysterectomy. Bladder decompressed. Bones: Unremarkable for age. IMPRESSION: 1. Suggestion of some distal small bowel wall thickening with subcentimeter lymph nodes within the adjacent mesentery suggestive of an enteritis/mesenteric adenitis. 2. Moderate hepatic steatosis. 3. Cholelithiasis without CT evidence of cholecystitis. 4. Old granulomatous disease. Please note that all CT scans at this facility use dose modulation, iterative reconstruction, and/or weight-based dosing when appropriate to reduce radiation dose to as low as reasonably achievable. Dictated by Nasir Nguyen MD @ 08/06/2023 1:20:38 PM (Electronically Signed)
--- NOTE | 2023-08-06 10:05 | ED.NURSE ---
Pt report given to calin GUERIN
[2023-08-06 10:38] VITALS: BP 113/53; PULSE 82; RESP 16; TEMP 36.8; O2SAT 99; BMI 22.5
[2023-08-06 11:22] LABS: Magnesium* 1.6 mg/dL (1.5-2.6); Phosphorus* 3.6 mg/dL (2.5-4.5)
[2023-08-06 11:35] VITALS: O2SAT 99
[2023-08-06] MEDS: PROCHLORPERAZINE 5 MG/ML VIAL IV (11:40)
--- NOTE | 2023-08-06 11:58 | CRLHL7_ITS ---
For Patients: As a result of the Century Cures Act, medical imaging exams and procedure reports are released immediately into your electronic medical record. You may view this report before your referring provider. If you have questions, please contact your health care provider. INDICATION: Vomiting and leukocytosis COMPARISON: Same day CT abdomen pelvis, prior chest radiograph 01/18/2023, chest CT 01/01/2023 TECHNIQUE: PA and lateral 2 view chest radiograph. FINDINGS: The lungs are well expanded. Right lower lobe reticular opacities in a peripheral distribution are not significantly different than on previous examinations. No new consolidations. No pulmonary edema. No pleural effusion. No pneumothorax. No pneumomediastinum. Normal cardiomediastinal silhouette. Atherosclerotic vascular calcifications. Bones: Normal for age. IMPRESSION: Peripheral reticular opacities in the right lung are similar compared to prior, but could certainly be due to repeated instances of aspiration. No large consolidation. Dictated by Sherri Brink MD @ 08/06/2023 2:17:09 PM (Electronically Signed)
--- NOTE | 2023-08-06 12:04 | PM.IMHP1 ---
Hospitalist- H&P: HPI History of Present Illness Date Seen: 08/06/23 Chief complaint: Vomiting, diarrhea Narrative: Mone Sprague is a 88 year old female past medical history significant for hypertension, hyperlipidemia, chronic iron deficiency anemia, chronic pain, fibromyalgia, hypothyroidism, recurrent UTIs, GERD, aortic valve sclerosis, anxiety, insomnia is admitted to the medical floor from the ED for further management 5 day history of diarrhea with episodic vomiting. Patient is seen with her daughter and partner at bedside. While she cannot recall specific details, her daughter is able to complete her history. Patient has had diarrhea since Sunday of last week. Overnight, frequency increased resulting in uncontrolled diarrhea and incontinence. She reports the stools to be chan brown in color and very malodorous. She reports cramping abdominal pain prior to stools. She was nauseous and had a single episode of vomiting earlier this morning. She continues to have intermittent waves of nausea. Denies blood or black stools. Denies headache. Has chronic dizziness. Denies chest pain or shortness of breath. Does not use oxygen or CPAP at home. No recent falls or trauma. In the ED, patient was noted to have a significant leukocytosis with a left shift. She has had no further stools since arrival so unable to collect for sample. She has remained vitally stable without fever, hypotension, tachycardia. She was also noted to have a potassium of 2.9. IV replacement was started but unable to tolerate secondary to burning pain. She lives in her own home with her live-in partner. Nonsmoker. Denies alcohol use. Review of Systems Narrative: REVIEW OF SYSTEMS: Complete review of systems performed and negative unless otherwise stated in HPI or below. 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890 - Other specified postprocedural states (ICD-10) Status post total knee replacement ?Z96.659 - Presence of unspecified artificial knee joint (ICD-10) History of hysterectomy (11/03/10) ?Z90.710 - Acquired absence of both cervix and uterus (ICD-10) History of colonoscopy (12/14/10) ?Z98.890 - Other specified postprocedural states (ICD-10) History of carpal tunnel release ?Z98.890 - Other specified postprocedural states (ICD-10) Family History Brother Arthritis Coronary artery disease Sister Breast cancer Son Coronary artery disease Family/Other High blood pressure Social History Narrative: does not drink alcohol does not use illicit drugs nonsmoker Patient continues to work 3 times a day at [employer]. What is your current living situation?: I presently have a place to live Problems where you live: no known problems Problems where you live details: n/a In the past 12 months, utilities in danger of being shut off: no In past 12 months, lack of transportation kept you from medical appts, meetings, work, or getting things needed for daily living: no In the past 12 mos, have been you worried that your food would run out before you had money to buy more?: never true In the past 12 mos, the food you bought just didn't last and you didn't have money to buy more?: never true Highest level of school completed/degree received: 11th grade Smoking Status: Never smoker Do you use any of these nicotine containing products: None Second hand tobacco smoke exposure: No How often do you have a drink containing alcohol: never How many standard drinks containing alcohol do you have on a typical day: 1 or 2 How often do you have six or more drinks on one occasion: Never AUDIT-C Alcohol total score: 0 Non-prescribed substance use: denies use Caffeine: Yes (Coffee Daily) How often does anyone, including family, friends and others, physically hurt you: never How often does anyone, including family, friends and others, insult or talk down to you: never How often does anyone, including family, friends and others, threaten you with harm: never How often does anyone, including family, friends and others, scream or curse at you: never Little interest or pleasure in doing things: not at all Feeling down, depressed, or hopeless: not at all service: No Meds Home Medications and Allergies Home Medications Medication Instructions Recorded Confirmed Type cholecalciferol (vitamin D3) 25 25 mcg PO QDAY 05/04/22 06/12/23 History mcg (1,000 unit) capsule polyethylene glycol 3350 17 17 g PO .Bedtime as needed PRN 05/04/22 06/12/23 History gram/dose oral powder trazodone 50 mg tablet 25 mg PO .hs 09/05/22 06/12/23 History Allergies Allergy/AdvReac Type Severity Reaction Status Date / Time codeine Allergy Severe Rash Verified 08/06/23 11:53 sulfamethoxazole Allergy Severe Rash Verified 08/06/23 11:53 trimethoprim Allergy Severe Rash Verified 08/06/23 11:53 Sulfa drugs Allergy Severe Rash Uncoded 08/06/23 11:53 DEMORAL Allergy Mild rash, Uncoded 08/06/23 11:53 itching, redness Exam Narrative: Exam Narrative: PHYSICAL EXAM General: Lying in bed, pleasant, appears in NAD HEENT: Normocephalic, atraumatic, sclera white, EOMI, oral mucosa moist Cardiovascular: RRR, S1S2. No pitting edema Pulmonary: CTA bilaterally without rhonchi, rales, expiratory wheezes. No dyspnea Abdominal: Soft, nondistended, diffuse very mild tenderness, no guarding Neurological: Alert, answering questions appropriately, cranial nerves intact, no focal findings Extremities: No gross joint deformity or swelling. AROMI. Neurovascularly intact Skin: Warm, dry. Const: Vital Signs, click to edit/add: Vital Signs - 24 hr 08/06/23 08:42 10/23/23 10:38 Temperature 98.0 F Pulse Rate [Right Pulse Oximeter] 89 Respiratory Rate 18 16 Blood Pressure [Ri ght Upper Arm] 101/65 Pulse Oximetry 96 99 Oxygen Delivery Me thod Room Air Room Air Hospitalist - H&P: Result Labs Labs: Short CBC 08/06/23 Range/Units 08:55 WBC 32.48 H* (4.50-11.00) K/uL Hgb 10.8 L (12.0-16.0) gm/dL Hct 34.0 (33.0-51.0) % Plt Count 179 (140-440) K/uL BMP 08/06/23 08:55 Sodium 135 Potassium 2.9 L* Chloride 104 Carbon Dioxide 21 BUN 13 Creatinine 1.1 Glucose 151 H Calcium 8.3 L Liver Function 08/06/23 Range/Units 08:55 Total Bilirubin 1.5 (0.1-1.5) mg/dL AST 44 H (12-35) U/L ALT 18 (4-35) U/L Alkaline Phosphatase 83 (40-150) U/L Albumin 3.5 (3.3-5.0) g/dL ECG Attestation: I personally reviewed and interpreted this ECG as follows: Interpretation: EKG shows PVCs and PACs, QTC 450, ventricular rate 88 Assessment and Plan Assessment and plan (1) Diarrhea: Problem comment: -described as chan and malodorous -stool culture, GI pathogens, ova/parasites ordered -continue IV fluids, clear liquid diet as tolerated Status: Acute (2) Vomiting: Problem comment: -single episode prior to admission -continue Compazine as needed for nausea -clear liquid diet as tolerated Status: Acute (3) Leukocytosis: Problem comment: -WBC 32.48 without significant left shift, could be partially reactionary, afebrile, vitals stable -UA/UC ordered given history of recurrent UTIs -CXR ordered to rule out aspiration pneumonia -empiric Zosyn started -continue IV fluids -continue to follow Status: Acute (4) Acute hypokalemia: Problem comment: -potassium 2.9 -IV replacement protocol. Lidocaine added for better tolerance -continue to trend -magnesium, phosphorus, sodium WNL Status: Acute (5) Hypertension: Problem comment: -stable, continue home medications Status: Acute (6) Hyperlipidemia: Problem comment: -stable, continue statin Status: Acute (7) Hypothyroidism: Problem comment: -continue levothyroxine Status: Acute (8) Chronic pain: Problem comment: -reports history of fibromyalgia, continue home medications including as needed Tylenol, tramadol (which she takes daily) Status: Acute Plan CODE: Full as discussed with patient and family VTE PPX: Enoxaparin Disposition: Observation
[2023-08-06] MEDS: 0.9 % SODIUM CHLORIDE 1000 ml 1,000 ML IV (12:08)
[2023-08-06 12:18] LABS: Lactate Sepsis w/Reflex* 1.9 mmol/L (0.5-1.9)
[2023-08-06] MEDS: ENOXAPARIN 40 MG/0.4 ML INJ SUBCUT (12:32)
[2023-08-06] MEDS: PIPERACILLIN/TAZOBACTAM 3.375 GM in 0.9 % SODIUM CHLORIDE Mini-bag 100 ML IVPB ×3 (12:32→23:31)
[2023-08-06] MEDS: fentaNYL 100 MCG/2 ML inj 25 MCG IVP ×4 (13:27→23:09)
[2023-08-06] MEDS: POTASSIUM CHLORIDE 10 MEQ, LIDOCAINE 1 % 1 ML in 0.9 % SODIUM CHLORIDE 100 ml 100 ML 106 MEQ IVPB ×6 (13:28→19:52)
[2023-08-06] MEDS: 0.9 % SODIUM CHLORIDE 1000 ml 1,000 ML 125 ML IV ×2 (14:26→21:30)
[2023-08-06 14:30] VITALS: PULSE 82
[2023-08-06 14:46] LABS: Appearance Urine Cloudy (Clear); Bilirubin Urine Negative (Negative); Blood Urine 2+ (Negative); Color Urine Yellow (Yellow); Glucose Urine Negative (Negative); Ketones Urine Negative (Negative); Leukocyte Esterase Urine Negative (Negative); Nitrite Urine Positive (Negative); Protein Urine 1+ (Negative); Specific Gravity Urine <= 1.005 (1.000-1.030); Urobilinogen Urine 0.2 (0.2-1.0); pH Urine 5.5 (5.0-8.5)
[2023-08-06 15:00] VITALS: BP 102/65; PULSE 78; PULSE 79; RESP 16; TEMP 36.9; O2SAT 97
--- NOTE | 2023-08-06 15:33 | PC.NURSE ---
PATIENT COOPERATIVE, VERY FATIGUED, DID NOT TOLERATE POTASSIUM INFUSION WITHOUT LIDOCAINE, UPDATED ON INFUSION NOT COMPLETE, SEE NEW ORDERS, PATIENT ALERT AND ORIENTED, ACCOMPANIED TO THE FLOOR WITH PARTNER BUD AND DTR ZULEYKA WHO BOTH APPEAR SUPPORTIVE, NAUSEA AND COMPAZINE GIVEN WITH RELIEF, ALSO EXPRESSED SOME ABDOMINAL PAIN THAT WAS SHARP AND PRN FENTANYL WITH RELIEF.
[2023-08-06 15:54] LABS: Bacteria Urine Few; Squamous Epithelial Cell Urine Moderate (None-Few)
[2023-08-06 18:24] LABS: C.Difficile Negative (Negative); CDIFFEPI 027 PRESUMPTIVE NEGATIVE (Negative)
[2023-08-06 19:44] LABS: Potassium* 3.8 mmol/L (3.6-5.1)
[2023-08-06] MEDS: SODIUM CHLORIDE 0.9 % (FLUSH) 10 ML SYRINGE 5 ML IVF (21:30)
--- NOTE | 2023-08-06 22:15 | PC.NURSE ---
VSS, RA. Abdominal pain of 6- some relief w/ 25 mcg fentanyl x3. Pt reports night sweats for last 2-3 months- soaked gown. Tolerating clear liquid diet- had 1 jello and apple juice. Encouraged fluids. Voided x4- 800 cc. Small loose BM x2- c-diff negative. SB assist w/ gait belt. PIV in left hand- redressed, intermittent abx, NS @ 125 cc/hr. Received 5 bags IV potassium- K+ now 3.8. Will continue to monitor, follow POC, and keep pt and family updated. Juliana Reyes RN
[2023-08-06 23:05] VITALS: BP 117/50; PULSE 74; PULSE 78; RESP 16; TEMP 36.6; O2SAT 96
[2023-08-07 01:40] VITALS: BP 142/64; PULSE 73; RESP 18; TEMP 36.6; O2SAT 98
[2023-08-07] MEDS: fentaNYL 100 MCG/2 ML inj 25 MCG IVP ×3 (03:21→11:23)
[2023-08-07] MEDS: PIPERACILLIN/TAZOBACTAM 3.375 GM in 0.9 % SODIUM CHLORIDE Mini-bag 100 ML IVPB ×4 (05:54→23:27)
[2023-08-07 06:28] LABS: Basophils Absolute Auto 0.08 K/uL (0.00-0.30); Basophils Percent Auto 0.8 % (0.0-3.0); Eosinophils Absolute Auto 0.02 K/uL (0.00-0.50); Eosinophils Percent Auto 0.2 % (0.0-7.0); Hematocrit 28.6 % (33.0-51.0); Hemoglobin* 8.9 gm/dL (12.0-16.0); Immature Granulocytes Abs Auto 0.08 K/uL (0.00-0.30); Immature Granulocytes Pct Auto 0.8 %; Lymphocytes Percent Auto 11.6 % (20-44); Mean Corpuscular HGB Conc 31 gm/dL (32-36); Mean Corpuscular Hemoglobin 26 pg (26-34); Mean Corpuscular Volume 85 fL (80-100); Monocytes Percent Auto 62.6 % (0.0-11.0); Platelet Count* 154 K/uL (140-440); RDW Coefficient of Variation % 20.8 % (11.5-15.5); Red Blood Count 3.38 m/uL (4.00-5.20); White Blood Count* 9.78 K/uL (4.50-11.00)
[2023-08-07 06:30] LABS: Slide Review Reflex No
[2023-08-07 06:42] LABS: Albumin* 2.7 g/dL (3.3-5.0); Chloride* 117 mmol/L (96-114); Sodium* 141 mmol/L (135-149)
[2023-08-07 06:43] LABS: Potassium* 3.7 mmol/L (3.6-5.1)
[2023-08-07 06:45] LABS: Creatinine* 0.8 mg/dL (0.5-1.5); Est. Creatinine Clearance* 29.01; Estimated Glomerular Filt Rate 72 ml/min
[2023-08-07 06:46] LABS: Alanine Aminotransferase* 13 U/L (4-35); Alkaline Phosphatase* 60 U/L (40-150); Anion Gap 6 mEq/L (7-15); Aspartate Amino Transferase* 27 U/L (12-35); Bilirubin Total* 0.5 mg/dL (0.1-1.5); Blood Urea Nitrogen* 9 mg/dL (7-30); Carbon Dioxide* 18 mmol/L (20-32); Glucose* 95 mg/dL (60-115); Total Protein* 5.6 g/dL (6.0-8.3)
[2023-08-07 06:59] LABS: C Reactive Protein* 20.1 mg/dL (0.5-1.0)
[2023-08-07 07:09] VITALS: PULSE 71
--- NOTE | 2023-08-07 07:41 | PC.NURSE ---
Pt alert and oriented x3. Afebrile. Pt reports 8/10 pain in abdomen, pain managed with PRN medications. Pt had x3 loose incontinent bowel movements overnight. Pt was cleaned up and given new sheets and gown. Pt is up SBA to bathroom. Pt slept throughout most of night.
[2023-08-07] MEDS: SODIUM CHLORIDE 0.9 % (FLUSH) 10 ML SYRINGE 5 ML IVF (07:44)
[2023-08-07] MEDS: 0.9 % SODIUM CHLORIDE 1000 ml 1,000 ML 125 ML IV (09:25)
[2023-08-07] MEDS: OMEPRAZOLE 20 MG CAPSULE DR PO ×2 (10:59→11:00)
[2023-08-07] MEDS: TRAMADOL HCL 50 MG TABLET PO ×2 (10:59→17:28)
[2023-08-07] MEDS: SERTRALINE 50 MG TABLET PO (11:00)
[2023-08-07] MEDS: LEVOTHYROXINE 50 MCG TABLET PO (11:00)
--- NOTE | 2023-08-07 11:20 | P.IMPN_ITS ---
Progress Note: A&P Assessment and plan (1) Diarrhea: Problem details: -described as chan and malodorous -stool culture, GI pathogens, ova/parasites ordered. C difficile negative. -continue IV fluids, clear liquid diet as tolerated -could consider Imodium when stool is collected for cultures/tests Status: Acute (2) Vomiting: Problem details: -resolved -single episode prior to admission -continue Compazine as needed for nausea -clear liquid diet as tolerated Status: Acute (3) Leukocytosis: Problem details: -resolved -WBC 32.48 on admission without significant left shift, could be partially reactionary, afebrile, vitals stable -UA/UC ordered given history of recurrent UTIs, UC pending -CXR ordered to rule out aspiration pneumonia, equivocal findings -continue Zosyn -continue gentle IV fluids Status: Acute (4) Acute hypokalemia: Problem details: -resolved following IV replacement -potassium 2.9 on admission, currently 3.7 -IV replacement protocol. Lidocaine added for better tolerance -continue to trend -magnesium, phosphorus, sodium WNL Status: Acute (5) Hypertension: Problem details: -stable, continue home medications Status: Acute (6) Hypothyroidism: Problem details: -continue levothyroxine Status: Acute (7) Hyperlipidemia: Problem details: -stable, continue statin Status: Acute (8) Chronic pain: Problem details: -reports history of fibromyalgia, continue home medications including as needed Tylenol, tramadol (which she takes daily), gabapentin Status: Acute (9) Anemia: Problem details: -8.9, down from 10.8, no reported episodes/signs of bleeding -query dilutional -FOBT ordered -continue to monitor Status: Acute Time Spent With Patient Total time spent: Total time spent caring for the patient today was 45 minutes. This includes time spent for the visit reviewing the chart, time spent during the visit, time spent after the visit and documentation and planning in coordination of care. Subjective Date Seen: 08/07/23 Interval history: Patient is sitting up in a chair this morning but admits she is not feeling much better yet. Had another large incontinent stool preceded by abdominal cramping. No further nausea or vomiting. Remains afebrile. Tolerating clears otherwise. Exam Narrative: Exam Narrative: PHYSICAL EXAM General: Sitting up in chair, in NAD Cardiovascular: RRR, S1S2. No pitting edema Pulmonary: CTA bilaterally without rhonchi, rales, expiratory wheezes. No dyspnea Abdominal: Soft, nondistended, NTTP Neurological: Alert, answering questions appropriately, cranial nerves intact, no focal findings Extremities: No gross joint deformity or swelling. AROMI. Neurovascularly intact Skin: Warm, dry. Const: Vital Signs, click to edit/add: Vital Signs - 24 hr 08/06/23 11:35 08/06/23 14:30 08/06/23 15:00 Temperature Pulse Rate 82 78 Pulse Rate [Right] Respiratory Rate Blood Pressure [Le ft Arm] Pulse Oximetry 99 Oxygen Delivery Me thod Room Air 08/06/23 15:00 08/06/23 15:00 08/06/23 23:05 Temperature 98.5 F Pulse Rate 78 Pulse Rate [Right] 79 79 Respiratory Rate 16 16 Blood Pressure [Le ft Arm] 102/65 Pulse Oximetry 97 Oxygen Delivery Me thod Room Air 08/06/23 23:05 08/06/23 23:05 08/07/23 01:40 Temperature 97.9 F 97.8 F Pulse Rate Pulse Rate [Right] 74 73 Respiratory Rate 16 16 18 Blood Pressure [Le ft Arm] 117/50 L 142/64 H Pulse Oximetry 96 98 Oxygen Delivery Me thod Room Air Labs Labs: Laboratory Results - last 24 hr 08/06/23 08/06/23 08/06/23 08:39 10:36 12:10 WBC RBC Hgb Hct MCV MCH MCHC RDW Coeff of Colt Plt Count Neut % (Auto) Lymph % (Auto) [place] % (Auto) Eos % (Auto) Baso % (Auto) Neut # (Auto) Lymph # (Auto) [place] # (Auto) Eos # (Auto) Baso # (Auto) Abs Immat Gran (auto) Imm/Tot Granulo (auto) Sodium Potassium Chloride Carbon Dioxide Anion Gap BUN Creatinine Estimated Creat Clear Estimated GFR Glucose Lactate 1.9 Calcium Phosphorus 3.6 Magnesium 1.6 Total Bilirubin Direct Bilirubin AST ALT Alkaline Phosphatase C-Reactive Protein Total Protein Albumin Urine Color Urine Appearance Urine pH Ur Specific [place] Urine Protein Urine Glucose (UA) Urine Ketones Urine Blood Urine Nitrite Urine Bilirubin Urine Urobilinogen Ur Leukocyte Esterase Urine RBC Urine WBC Ur Squamous Epith Cells Urine Bacteria Stl C. diff Tox B Gene Negative Stl C. diff [id number] PRESUMPTIVE NEGATIVE 08/06/23 08/06/23 08/07/23 14:20 19:27 06:10 WBC 9.78 RBC 3.38 L Hgb 8.9 L Hct 28.6 L MCV 85 MCH 26 MCHC 31 L RDW Coeff of Colt 20.8 H Plt Count 154 Neut % (Auto) 24.0 L Lymph % (Auto) 11.6 L [place] % (Auto) 62.6 H Eos % (Auto) 0.2 Baso % (Auto) 0.8 Neut # (Auto) 2.30 Lymph # (Auto) 1.10 [place] # (Auto) 6.10 H Eos # (Auto) 0.02 Baso # (Auto) 0.08 Abs Immat Gran (auto) 0.08 Imm/Tot Granulo (auto) 0.8 Sodium 141 Potassium 3.8 3.7 Chloride 117 H Carbon Dioxide 18 L Anion Gap 6 L BUN 9 Creatinine 0.8 Estimated Creat Clear 29.01 Estimated GFR 72 Glucose 95 Lactate Calcium 8.0 L Phosphorus Magnesium Total Bilirubin 0.5 Direct Bilirubin 0.0 AST 27 ALT 13 Alkaline Phosphatase 60 C-Reactive Protein 20.1 H Total Protein 5.6 L Albumin 2.7 L Urine Color Yellow Urine Appearance Cloudy A Urine pH 5.5 Ur Specific [place] <= 1.005 Urine Protein 1+ A Urine Glucose (UA) Negative Urine Ketones Negative Urine Blood 2+ A Urine Nitrite Positive A Urine Bilirubin Negative Urine Urobilinogen 0.2 Ur Leukocyte Esterase Negative Urine RBC 2-5 A Urine WBC 5-10 A Ur Squamous Epith Cells Moderate A Urine Bacteria Few A Stl C. diff Tox B Gene Stl C. diff [id number]
[2023-08-07 13:00] VITALS: BP 146/84; PULSE 72; RESP 18; TEMP 36.6; O2SAT 100
[2023-08-07] MEDS: ENOXAPARIN 40 MG/0.4 ML INJ SUBCUT (14:50)
[2023-08-07 15:00] VITALS: BP 153/83; PULSE 66; PULSE 67; PULSE 97; RESP 16; RESP 18; TEMP 36.7; O2SAT 97
--- NOTE | 2023-08-07 15:39 | PC.NURSE ---
TELE indicates NSR. Eval by Lisa JARA who spoke with pt, pt's partner Thaxton and pt's dtr Lorena. Pain managed with IV Fentanyl 25 mcg given twice and one PO tramadol. Plan transition to oral medications. IVF decreased to 75cc/hr. Pt rested between nsg interventions. Warm blankets for comfort. Pt had liu ice and hot tea for lunch, no bkfst tray ordered at pt's request. Pt had 3 loose bm's on day shift. Continue plan of care. Report to uJliana GUERIN for evening shift.
[2023-08-07 17:40] LABS: Fecal Occult Blood* Negative (Negative)
[2023-08-07 19:00] VITALS: BP 155/73; PULSE 73; RESP 16; TEMP 36.3; O2SAT 99
[2023-08-07] MEDS: TRAZODONE HCL 50 MG TABLET PO (21:05)
[2023-08-07] MEDS: GABAPENTIN 100 MG CAPSULE PO (21:05)
[2023-08-07] MEDS: SIMVASTATIN 10 MG TABLET PO (21:05)
[2023-08-07] MEDS: AMLODIPINE 10 MG TABLET PO (21:05)
[2023-08-07] MEDS: 0.9 % SODIUM CHLORIDE 1000 ml 1,000 ML 75 ML IV (22:21)
[2023-08-07 23:00] VITALS: PULSE 62
--- NOTE | 2023-08-07 23:05 | PC.NURSE ---
End of Shift: Patient pleasant and cooperative. Afebrile. PRN Ultram x2 for pain 04/23. Up to bathroom and chair with SBA and gait belt. 2 small loose BMs this shift. Patient requesting to advance diet, updated MD and tolerating regular diet with no nausea or increase in pain or diarrhea.
[2023-08-08] VITALS (9 sets, daily range): BP systolic 116–145; BP diastolic 52–90; PULSE 61–88; RESP 14–70; TEMP 36.6–36.9; O2SAT 95–99
[2023-08-08] MEDS: PIPERACILLIN/TAZOBACTAM 3.375 GM in 0.9 % SODIUM CHLORIDE Mini-bag 100 ML IVPB ×4 (06:04→23:15)
[2023-08-08] MEDS: LEVOTHYROXINE 50 MCG TABLET PO (06:05)
[2023-08-08] MEDS: TRAMADOL HCL 50 MG TABLET PO ×3 (06:07→21:07)
[2023-08-08 06:25] LABS: Basophils Percent Auto 2.2 % (0.0-3.0); Eosinophils Absolute Auto 0.03 K/uL (0.00-0.50); Eosinophils Percent Auto 0.7 % (0.0-7.0); Hematocrit 29.4 % (33.0-51.0); Hemoglobin* 9.1 gm/dL (12.0-16.0); Immature Granulocytes Abs Auto 0.12 K/uL (0.00-0.30); Immature Granulocytes Pct Auto 2.6 %; Lymphocytes Absolute Auto 1.28 K/uL (0.90-2.90); Lymphocytes Percent Auto 28.1 % (20-44); Mean Corpuscular HGB Conc 31 gm/dL (32-36); Mean Corpuscular Hemoglobin 27 pg (26-34); Mean Corpuscular Volume 86 fL (80-100); Monocytes Percent Auto 41.4 % (0.0-11.0); Platelet Count* 150 K/uL (140-440); RDW Coefficient of Variation % 21.2 % (11.5-15.5); Red Blood Count 3.42 m/uL (4.00-5.20); White Blood Count* 4.56 K/uL (4.50-11.00)
[2023-08-08 06:46] LABS: Slide Review Reflex Yes
[2023-08-08 06:59] LABS: Chloride* 118 mmol/L (96-114); Sodium* 143 mmol/L (135-149)
[2023-08-08 07:00] LABS: Potassium* 3.6 mmol/L (3.6-5.1)
[2023-08-08 07:02] LABS: Anion Gap 7 mEq/L (7-15); Carbon Dioxide* 18 mmol/L (20-32); Creatinine* 0.8 mg/dL (0.5-1.5); Est. Creatinine Clearance* 29.01; Estimated Glomerular Filt Rate 72 ml/min
[2023-08-08 07:03] LABS: Blood Urea Nitrogen* 6 mg/dL (7-30); Calcium* 7.9 mg/dL (8.4-10.6); Glucose* 90 mg/dL (60-115)
[2023-08-08 07:10] LABS: Slide Review Acceptable Review (Acceptable)
--- NOTE | 2023-08-08 07:43 | PC.NURSE ---
Pt is alert and oriented x3. Afebrile. Pt reports 5/10 pain in abdomen, managed with PRN medications. Pt had x2 liquids stools overnight, 1 was incontinent, new gown and socks provided. Pt is up SBA with IV pole. Pt slept throughout most of night.
[2023-08-08] MEDS: SERTRALINE 50 MG TABLET PO (08:40)
[2023-08-08] MEDS: LOPERAMIDE HCL 2 MG CAPSULE PO (09:43)
--- NOTE | 2023-08-08 12:23 | PM.IMPN1 ---
Progress Note: A&P Assessment and plan (1) Diarrhea: Problem details: -described as chan and malodorous- decreasing in frequency during hospital stay -stool culture, GI pathogens, ova/parasites remain pending. C difficile negative. FOBT negative -advanced to regular diet, tolerating without increased nausea, vomiting, abdominal pain, diarrhea -Imodium dose given this morning, continue to monitor -BUN and CO2 have downtrended in setting of diarrhea and IV hydration, continue to monitor with improved oral intake/nutrition. DC IVF -recommend outpatient GI consult as diarrhea reported to be recurring, this time requiring hospitalization Status: Acute (2) Vomiting: Problem details: -resolved -single episode prior to admission -continue Compazine as needed for nausea -clear liquid diet as tolerated Status: Acute (3) Leukocytosis: Problem details: -resolved -WBC 32.48 on admission without significant left shift, could be partially reactionary, afebrile, vitals stable -UA/UC mixed michelle, no further workup/therapy, BC NGTD -CXR ordered to rule out aspiration pneumonia, equivocal findings, discontinue Zosyn (received 2 days dosing), start azithromycin x 3 day course to complete 5 day course of antibiotics Status: Acute (4) Acute hypokalemia: Problem details: -resolved following IV replacement -potassium 2.9 on admission, currently 3.7 -IV replacement protocol. Lidocaine added for better tolerance -continue to trend -magnesium, phosphorus, sodium WNL Status: Acute (5) Hypertension: Problem details: -stable, continue home medications Status: Acute (6) Hypothyroidism: Problem details: -continue levothyroxine Status: Acute (7) Hyperlipidemia: Problem details: -stable, continue statin Status: Acute (8) Chronic pain: Problem details: -reports history of fibromyalgia, continue home medications including as needed Tylenol, tramadol (which she takes daily), gabapentin. Pain reported to be improving Status: Acute (9) Anemia: Problem details: -9.1 this morning, previously 8.9 and 10.8, no reported episodes/signs of bleeding -query dilutional -FOBT negative -continue to monitor Status: Acute (10) Pulmonary nodule: Problem details: -patient with known right lower lobe cavitary nodule. Due for repeat CT scan outpatient on 08/10/2023, advised to reschedule in the next 1-2 weeks Status: Acute Plan Continues to improve, possible discharge 1-2 days Time Spent With Patient Total time spent: Total time spent caring for the patient today was 45 minutes. This includes time spent for the visit reviewing the chart, time spent during the visit, time spent after the visit and documentation and planning in coordination of care. Subjective Date Seen: 08/08/23 Interval history: Patient reports feeling better this morning, continuing to slowly improve. Was able to tolerate a regular diet last night without immediate stooling. Did have 2 loose stools overnight otherwise. Tells me her abdominal pain is improving as well even with these bowel movements. No further nausea vomiting. Remains afebrile. Exam Narrative: Exam Narrative: PHYSICAL EXAM General: Lying in bed, pleasant, conversant, NAD Cardiovascular: RRR, S1S2. No pitting edema Pulmonary: CTA bilaterally without rhonchi, rales, expiratory wheezes. No dyspnea Abdominal: Soft, nondistended, NTTP no guarding Neurological: Alert, answering questions appropriately, cranial nerves intact, no focal findings Extremities: No gross joint deformity or swelling. AROMI. Neurovascularly intact Skin: Warm, dry. Const: Vital Signs, click to edit/add: Vital Signs - 24 hr 08/07/23 13:00 08/07/23 15:00 08/07/23 15:00 Temperature 97.8 F 98.0 F Pulse Rate Pulse Rate [Right] 72 97 67 Respiratory Rate 18 18 16 Blood Pressure [Le ft Arm] 146/84 H Blood Pressure [Ri ght Arm] 153/83 H Pulse Oximetry 100 97 Oxygen Delivery Me thod Room Air Room Air 08/07/23 15:00 08/07/23 19:00 08/07/23 23:00 Temperature 97.4 F L Pulse Rate 66 62 Pulse Rate [Right] 73 Respiratory Rate 16 Blood Pressure [Le ft Arm] Blood Pressure [Ri ght Arm] 155/73 H Pulse Oximetry 99 Oxygen Delivery Me thod 08/08/23 02:15 08/08/23 02:15 08/08/23 06:26 Temperature 97.9 F 97.8 F Pulse Rate Pulse Rate [Right] 82 82 88 Respiratory Rate 14 14 18 Blood Pressure [Le ft Arm] Blood Pressure [Ri ght Arm] 116/52 L 140/66 H Pulse Oximetry 96 98 Oxygen Delivery Me thod Room Air Room Air 08/08/23 08:35 08/08/23 08:35 08/08/23 09:00 Temperature 98.5 F Pulse Rate 64 Pulse Rate [Right] 68 68 Respiratory Rate 24 24 Blood Pressure [Le ft Arm] Blood Pressure [Ri ght Arm] 137/66 Pulse Oximetry 97 Oxygen Delivery Me thod Room Air 08/08/23 11:38 Temperature 98 F Pulse Rate Pulse Rate [Right] 70 Respiratory Rate 70 H Blood Pressure [Le ft Arm] Blood Pressure [Ri ght Arm] 131/57 L Pulse Oximetry 99 Oxygen Delivery Me thod Room Air Labs Labs: Laboratory Results - last 24 hr 08/07/23 08/08/23 17:00 06:02 WBC 4.56 RBC 3.42 L Hgb 9.1 L Hct 29.4 L MCV 86 MCH 27 MCHC 31 L RDW Coeff of Colt 21.2 H Plt Count 150 Neut % (Auto) 25.0 L Lymph % (Auto) 28.1 [place] % (Auto) 41.4 H Eos % (Auto) 0.7 Baso % (Auto) 2.2 Neut # (Auto) 1.10 L Lymph # (Auto) 1.28 [place] # (Auto) 1.90 H Eos # (Auto) 0.03 Baso # (Auto) 0.10 Abs Immat Gran (auto) 0.12 Imm/Tot Granulo (auto) 2.6 Diff Slide Review Acceptable Review Sodium 143 Potassium 3.6 Chloride 118 H Carbon Dioxide 18 L Anion Gap 7 BUN 6 L Creatinine 0.8 Estimated Creat Clear 29.01 Estimated GFR 72 Glucose 90 Calcium 7.9 L Stool Occult Blood Negative
[2023-08-08] MEDS: ENOXAPARIN 40 MG/0.4 ML INJ SUBCUT (12:36)
--- NOTE | 2023-08-08 18:03 | PC.NURSE ---
End of Shift: Patient pleasant and cooperative. Patient vitally stable, lungs clear, BS WNL, IV intact and SL. Patient independent in room. Patient rated abdominal pain 8/10, tramadol given once with pain improvement. Patient denies nausea and has not vomited. Patient had a couple loose stools, loperamide given. Patient tolerating regular diet. Patient naps a lot of the day.
[2023-08-08] MEDS: AMLODIPINE 10 MG TABLET PO (21:07)
[2023-08-08] MEDS: GABAPENTIN 100 MG CAPSULE PO (21:07)
[2023-08-08] MEDS: TRAZODONE HCL 50 MG TABLET PO (21:07)
[2023-08-08] MEDS: SODIUM CHLORIDE 0.9 % (FLUSH) 10 ML SYRINGE 5 ML IVF (21:08)
[2023-08-08] MEDS: SIMVASTATIN 10 MG TABLET PO (21:08)
[2023-08-09 02:48] VITALS: BP 143/64; PULSE 71; RESP 18; TEMP 37; O2SAT 96
[2023-08-09 03:09] LABS: Adenovirus PCR Not Detected; Astrovirus PCR Not Detected; Campylobacter PCR Not Detected; Cryptosporidium PCR Not Detected; Cyclospora cayetanensis PCR Not Detected; Entamoeba histolytica PCR Not Detected; Enteroaggregative E coli PCR Not Detected; Enteropathogenic E coli PCR Not Detected; Enterotoxigenic E coli PCR Not Detected; Giardia lamblia PCR Not Detected; Norovirus Gi/GII PCR Not Detected; Plesiomonas shig PCR Not Detected; Rotavirus A PCR Not Detected; Salmonella PCR Not Detected; Sapovirus PCR Not Detected; Shiga toxin E coli PCR Not Detected; Shigella/Enteroinvasive E coli Not Detected; Vibrio PCR Not Detected; Vibrio cholerae PCR Not Detected; Yersinia enterocolitica PCR Not Detected
[2023-08-09] MEDS: PIPERACILLIN/TAZOBACTAM 3.375 GM in 0.9 % SODIUM CHLORIDE Mini-bag 100 ML IVPB (06:06)
[2023-08-09 06:33] LABS: Basophils Percent Auto 3.3 % (0.0-3.0); Hematocrit 29.9 % (33.0-51.0); Hemoglobin* 9.3 gm/dL (12.0-16.0); Immature Granulocytes Pct Auto 5.1 %; Lymphocytes Percent Auto 36.4 % (20-44); Mean Corpuscular HGB Conc 31 gm/dL (32-36); Mean Corpuscular Hemoglobin 26 pg (26-34); Mean Corpuscular Volume 85 fL (80-100); Monocytes Percent Auto 27.8 % (0.0-11.0); Neutrophils Percent Auto 26.4 % (42.0-72.0); Platelet Count* 204 K/uL (140-440); Red Blood Count 3.54 m/uL (4.00-5.20); Slide Review Reflex No; White Blood Count* 3.96 K/uL (4.50-11.00)
--- NOTE | 2023-08-09 06:35 | PC.NURSE ---
Shift note: Pt is independent in room. Alert and oriented and able to make needs known. Pain level rated between 2 and 4. 1 time Tramadol was requested and given at 2100. Vitally stable. At 0545, Iv line was leaking and arm appears swelling. Iv line disconnected and new one inserted to the right wrist. Pt had adequate sleep. Vital signs stable.
[2023-08-09] MEDS: LEVOTHYROXINE 50 MCG TABLET PO (06:44)
[2023-08-09 06:46] LABS: Chloride* 117 mmol/L (96-114); Sodium* 143 mmol/L (135-149)
[2023-08-09 06:49] LABS: Anion Gap 7 mEq/L (7-15); Blood Urea Nitrogen* 3 mg/dL (7-30); Carbon Dioxide* 19 mmol/L (20-32); Creatinine* 0.7 mg/dL (0.5-1.5); Est. Creatinine Clearance* 29.01; Estimated Glomerular Filt Rate 84 ml/min
[2023-08-09 06:50] LABS: Calcium* 7.8 mg/dL (8.4-10.6); Glucose* 86 mg/dL (60-115)
[2023-08-09 07:06] VITALS: PULSE 65
[2023-08-09 08:53] VITALS: BP 152/74; PULSE 65; RESP 16; TEMP 37.2; O2SAT 97
[2023-08-09] MEDS: SERTRALINE 50 MG TABLET PO (08:59)
[2023-08-09] MEDS: OMEPRAZOLE 20 MG CAPSULE DR PO (08:59)
[2023-08-09] MEDS: TRAMADOL HCL 50 MG TABLET PO (08:59)
[2023-08-09 09:11] LABS: Albumin* 2.5 g/dL (3.3-5.0)
[2023-08-09] MEDS: POTASSIUM CHLORIDE 10 MEQ CAPSULE ER 40 MEQ PO (09:40)
[2023-08-09] MEDS: SODIUM CHLORIDE 0.9 % (FLUSH) 10 ML SYRINGE 5 ML IVF (09:41)
[2023-08-09 10:14] LABS: Magnesium* 1.7 mg/dL (1.5-2.6)
--- NOTE | 2023-08-09 10:14 | NUTR.NU ---
RDN with MD consult for nutritional consult. Patient admitted for recurrent diarrhea and 1 episode of vomiting. Weight has increased recently. Current weight 126 lb 5 oz; 06/12/23 118 lb; 01/18/23 113 lb 6oz. Weight gain is not significant. Two meals per day since admit, patient reports she typically only eats 2 meals at home. Does consume a protein drink once daily which she believes may be causing her diarrhea. She typically consumes oatmeal with strawberries or wheat toast for breakfast. Makes a protein potato and vegetable dinner. She enjoys cottage cheese with fruit. RDN offered diet education to patient whom agreed. Diet education offered related to diarrhea. Discussed foods to include and avoid when experiencing diarrhea. Aim for no more than 15 grams of fiber per day until MD recommends differently Per MD report, patient to follow up with GI specialist for recurrent diarrhea. Handouts provided to support discussion. RDN's contact information was provided and patient was encouraged to call with questions. Patient declined verbal education for designated caregiver and will pass along the handout provided.
[2023-08-09] MEDS: AMOXICILLIN/CLAVULANATE 500 mg/125 mg TABLET PO (10:39)
--- NOTE | 2023-08-09 10:50 | PM.DS1 ---
DS: Providers Provider Date Seen: 08/09/23 Date of admission: 08/06/23 09:56 Primary care physician: Chinedu Callahan PA-C Admitting Clinician: Christian Miranda MD Consults: 08/06/23 11:19 Consult to Occupational Therapy [CONS] Routine Comment: Reason(s) for OT Consult:: Evaluate and Treat Any Restrictions?:: No Restrictions Consult to Physical Therapy [CONS] Routine Comment: Reason(s) for PT Consult:: Evaluate and Treat Any Restrictions?:: No Restrictions 08/06/23 11:35 Consult to Physical Therapy [CONS] Routine Comment: Reason(s) for PT Consult:: Evaluate and Treat Any Restrictions?:: No Restrictions 08/09/23 09:15 Consult to Nutrition [CONS] Routine Comment: Reason for consult:: Nutritional Consult Attending Physician on discharge: REBECCA Alcala, [facility] Date of Discharge: 08/09/23 DS: Diagnosis Discharge Diagnosis (1) Diarrhea: Status: Acute Problem details: -described as chan and malodorous- decreasing in frequency during hospital stay -stool culture negative, GI pathogens negative, ova/parasites pending. C difficile negative. FOBT negative -advanced to regular diet, tolerating without increased nausea, vomiting, abdominal pain, diarrhea -Imodium dose given 08/08 with no further stools up until time of discharge -BUN 3 and CO2 19 on day of discharge -noted in setting of recurrent diarrhea, treated with IV hydration which was discontinued, and poor oral intake for some time prior to hospitalization. Corrected calcium 9.0. Magnesium 1.7. History of vitamin-D deficiency. PTH pending on discharge. Dietary consult ordered prior to discharge. -recommend outpatient GI consult as diarrhea reported to be recurring, this time requiring hospitalization (2) Leukocytosis: Status: Acute Problem details: -resolved -WBC 32.48 on admission without significant left shift, could be partially reactionary, afebrile, vitals stable -UA/UC mixed michelle, no further workup/therapy, BC NGTD -CXR ordered to rule out aspiration pneumonia, equivocal findings, discontinue Zosyn (received 3 days dosing), start Augmentin x2 day course to complete 5 day course of antibiotics (3) Vomiting: Status: Acute Problem details: -resolved -single episode prior to admission -continue Compazine as needed for nausea -clear liquid diet as tolerated (4) Acute hypokalemia: Status: Acute Problem details: -2.9 on admission -improved following IV replacement protocol on admission. Lidocaine added for better tolerance -continued to trend. 3.0 on day of discharge. Discharged with oral replacement x3 day course, to be rechecked with PCP. -magnesium, phosphorus, sodium remained WNL. As above, dietary consult prior to discharge (5) Hypertension: Status: Acute Problem details: -stable, continued home medications (6) Anemia: Status: Acute Problem details: -continued to trend up following discontinuation of IV fluids. No reported episodes/signs of bleeding -query dilutional, history of iron deficiency anemia -FOBT negative -9.3 on day of discharge. Follow-up with PCP for recheck and further workup as needed. (7) Pulmonary nodule: Status: Acute Problem details: -patient with known right lower lobe cavitary nodule. Due for repeat CT scan outpatient on 08/10/2023, advised to reschedule in the next 1-2 weeks when she is feeling better DS: Summary Hospital Course Hospital Course: [age] year old female past medical history significant for hypertension, hyperlipidemia, iron deficiency anemia, hypothyroidism, chronic pain, recurrent UTIs, vitamin-D deficiency was admitted to the medical floor for acute diarrhea causing weakness, acute delirium. Course of care and details as noted above. Outpatient follow-up with GI recommended for acute on chronic, recurrent episodes of diarrhea. Outpatient follow-up with PCP post hospital stay. Status at Discharge Overall status at discharge: patient is progressing back to baseline Time Spent with Patient Time attestation: Total time spent providing and/or coordinating discharge services: Time spent: Greater than 30 minutes Exam Narrative: Exam Narrative: PHYSICAL EXAM General: Sitting up in chair, pleasant, very conversant, NAD. Appears so much brighter today Cardiovascular: RRR. No pitting edema Pulmonary: No dyspnea Neurological: Alert and oriented, answering questions appropriately, cranial nerves intact, no focal findings Extremities: No gross joint deformity or swelling. AROMI. Neurovascularly intact Skin: Warm, dry. Const: Vital Signs, click to edit/add: Vital Signs - 24 hr 08/08/23 11:38 08/08/23 15:30 08/08/23 15:30 Temperature 98 F 98.5 F Pulse Rate Pulse Rate [Right] 70 61 61 Respiratory Rate 70 H 61 H 61 H Blood Pressure [Le ft Arm] 145/90 H Blood Pressure [Ri ght Arm] 131/57 L Pulse Oximetry 99 97 Oxygen Delivery Me thod Room Air Room Air 08/08/23 16:43 08/08/23 19:00 08/08/23 23:00 Temperature 97.9 F 98.2 F Pulse Rate 64 Pulse Rate [Right] 73 69 Respiratory Rate 18 18 Blood Pressure [Le ft Arm] 144/72 H Blood Pressure [Ri ght Arm] 138/63 Pulse Oximetry 99 95 Oxygen Delivery Me thod Room Air Room Air 08/08/23 23:00 08/09/23 02:48 08/09/23 07:06 Temperature 98.6 F Pulse Rate 63 65 Pulse Rate [Right] 71 Respiratory Rate 18 Blood Pressure [Le ft Arm] Blood Pressure [Ri ght Arm] 143/64 H Pulse Oximetry 96 Oxygen Delivery Me thod Room Air 08/09/23 08:53 Temperature 99 F Pulse Rate Pulse Rate [Right] 65 Respiratory Rate 16 Blood Pressure [Le ft Arm] Blood Pressure [Ri ght Arm] 152/74 H Pulse Oximetry 97 Oxygen Delivery Me thod Room Air DS: Data Data Completed and Pending Pending studies at discharge: PTH, stool for ova and parasites Labs on day of discharge: Labs from last 24 hours 08/09/23 08/09/23 08/09/23 09:57 09:57 09:03 WBC RBC Hgb Hct MCV MCH MCHC RDW Coeff of Colt Plt Count Neut % (Auto) Lymph % (Auto) Edmunds % (Auto) Eos % (Auto) Baso % (Auto) Neut # (Auto) Lymph # (Auto) Edmunds # (Auto) Eos # (Auto) Baso # (Auto) Abs Immat Gran (auto) Imm/Tot Granulo (auto) Sodium Potassium Chloride Carbon Dioxide Anion Gap BUN Creatinine Estimated Creat Clear Estimated GFR Glucose Calcium Magnesium Albumin PTH Intact PTH Intact pmol/L Calcium (PTH Intact) Stl C. cayetanensis PCR Stool Rotavirus A PCR Stool Adenovirus (PCR) Stool Astrovirus (PCR) Stool Campylobacter PCR Stool Cryptosporidium PCR Stl E.coli Shiga Tox PCR Stool E coli O157 PCR Stl Enterotoxigenic E PCR Stool EPEC (PCR) Stool EAEC (PCR) Stl E. histolytica PCR Stool Giardia Lamblia PCR Stl P. shigelloides PCR Stool Salmonella PCR Stool Sapovirus (PCR) Stl Shigella/EIEC PCR St Y.enterocolitica PCR Stool Vibrio (PCR) Stl Vibrio cholerae PCR Stl Norovirus GI/GII PCR Lab Acknowledgement Test Added Test Added Test Added 08/09/23 08/06/23 06:01 09:00 WBC 3.96 L RBC 3.54 L Hgb 9.3 L Hct 29.9 L MCV 85 MCH 26 MCHC 31 L RDW Coeff of Colt 21.0 H Plt Count 204 Neut % (Auto) 26.4 L Lymph % (Auto) 36.4 Edmunds % (Auto) 27.8 H Eos % (Auto) 1.0 Baso % (Auto) 3.3 H Neut # (Auto) 1.00 L Lymph # (Auto) 1.40 Edmunds # (Auto) 1.10 H Eos # (Auto) 0.00 Baso # (Auto) 0.10 Abs Immat Gran (auto) 0.20 Imm/Tot Granulo (auto) 5.1 Sodium 143 Potassium 3.0 L Chloride 117 H Carbon Dioxide 19 L Anion Gap 7 BUN 3 L Creatinine 0.7 Estimated Creat Clear 29.01 Estimated GFR 84 Glucose 86 Calcium 7.8 L Magnesium 1.7 Albumin 2.5 L PTH Intact Cancelled PTH Intact pmol/L Pending Calcium (PTH Intact) Pending Stl C. cayetanensis PCR Not Detected Stool Rotavirus A PCR Not Detected Stool Adenovirus (PCR) Not Detected Stool Astrovirus (PCR) Not Detected Stool Campylobacter PCR Not Detected Stool Cryptosporidium PCR Not Detected Stl E.coli Shiga Tox PCR Not Detected Stool E coli O157 PCR N/A Stl Enterotoxigenic E PCR Not Detected Stool EPEC (PCR) Not Detected Stool EAEC (PCR) Not Detected Stl E. histolytica PCR Not Detected Stool Giardia Lamblia PCR Not Detected Stl P. shigelloides PCR Not Detected Stool Salmonella PCR Not Detected Stool Sapovirus (PCR) Not Detected Stl Shigella/EIEC PCR Not Detected St Y.enterocolitica PCR Not Detected Stool Vibrio (PCR) Not Detected Stl Vibrio cholerae PCR Not Detected Stl Norovirus GI/GII PCR Not Detected Lab Acknowledgement Preliminary micro results at discharge 08/06/23 10:45 Blood Culture - Preliminary Blood NO GROWTH AFTER 48 HOURS 08/06/23 10:36 Blood Culture - Preliminary Blood NO GROWTH AFTER 48 HOURS Discharge Plan Discharge Disposition: Home, Self-Care Date of Admission: 08/06/23 09:56 Attending Provider on Discharge: Lisa Ramon Primary Care Provider: Chinedu Callahan Condition: Improved Anticipated Discharge Date/Time: 08/09/23 13:00 Discharge Medications: New amoxicillin-pot clavulanate [Augmentin] 500-125 mg Tablet 1 tab PO BIDWM Qty: 3 0RF potassium chloride 20 mEq tablet extended release 20 meq PO BIDWM Qty: 4 0RF Continued cholecalciferol (vitamin D3) 25 mcg (1,000 unit) capsule 25 mcg PO DAILY trazodone 50 mg tablet 50 mg PO HS omeprazole 20 mg capsule,delayed release(DR/EC) 20 mg PO QAM Qty: 90 0RF simvastatin 10 mg tablet 10 mg PO HS amlodipine 10 mg tablet 10 mg PO HS Rx Instructions: 1 po qhs for blood pressure levothyroxine 50 mcg tablet 50 mcg PO DAILY Rx Instructions: TAKE ONE TABLET BY MOUTH EVERY DAY gabapentin 100 mg capsule 100 mg PO HS sertraline 50 mg tablet 50 mg PO DAILY tramadol 50 mg tablet 50 mg PO Q6-8H PRN (Reason: pain) Qty: 270 1RF Discontinued polyethylene glycol 3350 17 gram/dose powder 17 g PO HS PRN Discharge Orders: Discharge Order (Routine); Ordered 08/09/23 Ordered By: Lisa Ramon Patient Education: Potassium Chloride (By mouth), Amoxicillin/Clavulanate Potassium (By mouth) (Augmentin, Augmentin..., Hypokalemia (GEN), Acute Diarrhea (GEN) Additional Instructions: Continue to advance your diet as tolerated, considering dietitian recommendations made prior to discharge. Consider keeping a diary of any foods you have eaten prior to onset of diarrhea episodes. Recommend outpatient follow-up with Gastroenterology for further evaluation and management recommendations. Your potassium was low. You will take an oral supplement for a couple of days following discharge. You will need to have your levels rechecked with your PCP. It is suspected he may have had an aspiration pneumonia following a vomiting episode while you are sick. He received IV antibiotics while here in the hospital and our discharged with 2 more days of oral antibiotics. Follow-up with your PCP. Activity Level: Activity as Tolerated Activity Detail: Discussed working on overall strength and flexibility using therabands, light weights. Has a gym in her apartment building. Discharge Diet: Other Diet Detail: Continue with recommendations made by Spray Machine Loader Follow Up Appointments: José Miguel Denney MD [Staff Physician] - 08/10/23 11:00 am ([facility] for check on recurrent diarrhea. ) Chinedu Callahan PA-C [Primary Care Provider] - 08/16/23 ([facility] will call patient with time and date of appointment. Follow-up hospitalization acute on chronic recurrent diarrhea, weakness, suspected pneumonia. Recommend outpatient GI follow-up) Forms: Gnip Info Instructions
[2023-08-09] MEDS: ENOXAPARIN 40 MG/0.4 ML INJ SUBCUT (12:32)
--- NOTE | 2023-08-09 12:38 | PC.NURSE ---
Discharge Note: 1240 This business writer assisted pts nurse [place] with discharge teaching and instructions. All questions and concerns from pt and spouse addressed. IV removed and Lovenox given. Pt asked about pain medication, business writer looked up in DEC when last pain was given. Suggested acetaminophen as an option but pt declined.
--- NOTE | 2023-08-09 13:30 | PC.NURSE ---
Note pain managed with tramadol. Voiding w/o difficulty. No further loose stools. KCL 10meq 4 tabs provided for K+ level of 3.0. Pt changed to oral Augmentin. Tolerated regular diet, tile sprayer did teaching. Discharged via w/c to own home with her personal belongings & sig other [place] as transportation @[id number].
[2023-08-11 17:31] LABS: Ova and Parasite, Fecal Negative (Negative)
== END 2023-08-09 12:49 | disposition home or self-care (01) ==
LOC: ED 09:27 → MEDSURG 09:56
PROVIDERS: Physician Assistant; Admitting Provider Internal Medicine; Emergency Provider Family Medicine; PCP Physician Assistant Medical; Visit Provider Internal Medicine
DX: R19.7 Diarrhea, unspecified (principal); E87.6 Hypokalemia; D64.9 Anemia, unspecified; D72.829 Elevated white blood cell count, unspecified; R53.1 Weakness; R91.1 Solitary pulmonary nodule; I10 Essential (primary) hypertension; R11.0 Nausea; R11.10 Vomiting, unspecified; R15.9 Full incontinence of feces; R41.0 Disorientation, unspecified; R10.9 Unspecified abdominal pain; R42 Dizziness and giddiness; E78.2 Mixed hyperlipidemia; K21.9 Gastro-esophageal reflux disease without esophagitis; M79.7 Fibromyalgia; E03.9 Hypothyroidism, unspecified; D27.9 Benign neoplasm of unspecified ovary; G47.00 Insomnia, unspecified; G89.29 Other chronic pain; F41.9 Anxiety disorder, unspecified; E55.9 Vitamin D deficiency, unspecified; R63.4 Abnormal weight loss; Z68.24 Body mass index [BMI] 24.0-24.9, adult; Z90.710 Acquired absence of both cervix and uterus; Z87.898 Personal history of other specified conditions; Z87.440 Personal history of urinary (tract) infections; Z96.659 Presence of unspecified artificial knee joint; Z98.890 Other specified postprocedural states
CPT/HCPCS: 36415; 71046; 74177; 80048; 80053; 80076; 81001; 82040; 82270; 82310; 83605; 83735; 83970; 84100; 84132; 85025; 86140; 87040; 87045; 87046; 87086; 87177; 87209; 87427; 87493; 87505; 96361; 96365; 96366; 96367; 96368; 96372; 96375; 97116; 97161; 97165; 97535; 99284; 99285; G0378; A9270; J0780; J1650; J2543; J3010; J3480; J7030; Q9967

== ENCOUNTER 2023-08-27 10:17 | Outpatient (CLI) | payer MEDICARE, SELFPAY ==
--- OUTSIDE RECORDS SUMMARY | 2023-08-27 10:19 | XMS_ITS | Continuity of Care Document ---
Author Name Unknown Organization [facility] Address [address] [place] [address] Phone Care Team Providers Care Mixer Lever Operator Name Role Phone Steve Dickerson DO Unavailable Unavailable Advance Directives Directive Yes / No Effective Date File Name No Information Encounters Encounter Description Practice Location Reason(s) For Visit Diagnoses Date Provider Providers Copied on Encounter [facility], [address], [place], [address], [place] tel:[phone] [facility], No Information 2 Tuan Wilson. [facility] [address], [place], [address], [place]. tel:[phone] Family History Family Member Type Diagnosis Age [...]
--- NOTE | 2023-08-27 11:00 | CRLHL7_ITS ---
For Patients: As a result of the Century Cures Act, medical imaging exams and procedure reports are released immediately into your electronic medical record. You may view this report before your referring provider. If you have questions, please contact your health care provider. Indication: NODULE FOLLOW UP. ABNORMAL WT LOSS Technique: Noncontrast CT chest Please note that all CT scans at this facility use dose modulation, iterative reconstruction, and/or weight-based dosing when appropriate to reduce radiation dose to as low as reasonably achievable. Comparison: 08/06/2023 Findings: Calcified granulomas within the liver and spleen. Layering densities within the gallbladder. Vascular calcifications. Hiatal hernia is unchanged. Stable precarinal lymph node. Calcified right hilar lymph nodes. No vertebral body compression fracture. Biapical pleural parenchymal scarring is similar. Stable subpleural reticular densities bilaterally involving the right lower lobe, right middle lobe and left lower lobe. Patchy areas of scarring in the lingula. Stable subpleural nodule within the right upper lobe. Unchanged cavitary nodular density within the right lower lobe measuring 8.5 millimeters. Vascular calcifications. No effusion. Impression: Stable bilateral subpleural parenchymal densities, right greater than left with unchanged 8.5 millimeter cavitary nodular density right lower lobe. Sequela of old granulomatous disease. Unchanged hiatal hernia and cholelithiasis. Please note that all CT scans at this facility use dose modulation, iterative reconstruction, and/or weight-based dosing when appropriate to reduce radiation dose to as low as reasonably achievable. Dictated by Conrado Goldstein MD @ 08/28/2023 11:56:46 AM (Electronically Signed)
== END 2023-08-27 10:18 | disposition home or self-care (01) ==
LOC: CT 10:18
PROVIDERS: PCP Physician Assistant Medical; Visit Provider Internal Medicine Pulmonary Disease
DX: R63.4 Abnormal weight loss (principal); R91.8 Other nonspecific abnormal finding of lung field; K44.9 Diaphragmatic hernia without obstruction or gangrene; K80.20 Calculus of gallbladder without cholecystitis without obstruction
CPT/HCPCS: 71250

== ENCOUNTER 2023-11-20 11:22 | Outpatient (CLI) | payer MEDICARE, SELFPAY | END 2023-11-20 11:23 | disposition home or self-care (01) | LOC: FRMREF 11:24 | PROVIDERS: PCP Physician Assistant Medical; Visit Provider Family Medicine | DX: E87.6 Hypokalemia (principal) | CPT/HCPCS: 80053 ==

== ENCOUNTER 2023-11-30 11:17 | Outpatient (CLI) | payer MEDICARE, SELFPAY | END 2023-11-30 11:18 | disposition home or self-care (01) | LOC: FRMREF 11:19 | PROVIDERS: PCP Physician Assistant Medical; Visit Provider Physician Assistant Medical | DX: R53.83 Other fatigue (principal); E87.6 Hypokalemia; N39.0 Urinary tract infection, site not specified | CPT/HCPCS: 80053; 82306; 82607; 87086; 87186 ==